=== PATIENT | male | born 1955 | race Caucasian/White ===

== ENCOUNTER 2020-11-08 11:06 | Inpatient (IN) | payer MEDICAID, OTHER ==
[2020-11-08] MEDS ORDERED: Sodium Chloride 0.9% 10 ML Syringe FLUSH PRN (11:17)
[2020-11-08] MEDS ORDERED: Acetaminophen 325 MG Tab PO PRN (11:17)
[2020-11-08] MEDS ORDERED: Ondansetron 4 MG/2 ML SDV IV PRN (11:17)
--- NOTE | 2020-11-08 12:02 | PCM.HP.2 ---
<Yo Marks - Last Filed: 11/08/20 14:27> H&P History of Present Illness - General Date of Service: 11/08/20 Admit Problem/Dx: Admission Diagnosis/Problem Admission Diagnosis/Problem Bacteremia Source of Information: Patient, Provider, RN, RN Notes Reviewed History Limitations: Reports: No Limitations - History of Present Illness Initial Comments - Free Text/Narative: This is a 65-year-old male who presents as a direct admit after being sent our way from oncology. Patient reportedly was evaluated at [facility] on 11/07/2020 after he reported a fever, sore throat, and runny nose. He also reported an associated cough. Patient reports he has been feeling progressively worse and that is been ongoing for several days. He was given a fluid bolus at [facility] due to blood pressure of 86/48 and labs were obtained. Per the [facility] note WBC was 4.8, ANC was 4.0, hemoglobin 10.8, platelets 158, toxic granulation was noted. Glucose was 145, BUN was 29, creatinine 1.27, calcium 8.3, protein 5.5, albumin 2.8, GFR was 57. Last chest x-ray was performed on the and was negative except for the mass in his right lung. Covid screen was negative. UA was also obtained with 1+ blood, 30 mg/dL of protein, 1+ leukocyte esterase, 21-50 WBCs, 6-10 RBCs, occasional squamous epithelial cell, and moderate bacteria noted. Per the [facility] note this was sent for culture and we will monitor for the results of this. At that time blood cultures were obtained and were sent to our facility. 4 out of 4 bottles returned positive for beta strep group B. After this was observed he was sent to our facility for admission. He carries a history of COPD, CAD, HLD, hypertension, malignant neoplasm of the lower left lobe of the right lung. He is currently undergoing treatment with Dr. Fisher, of [facility]. He does have a Port-A-Cath in place, right chest. He is a current daily smoker with a history of 2 packs a day, but reports he is down to about a pack every 4 days. He is a full code. His PCP is Tammi Hernandez NP. right flank Pain Score (Numeric/FACES): 2 - Related Data Allergies/Adverse Reactions: Allergies Allergy/AdvReac Type Severity Reaction Status Date / Time ampicillin Allergy Other Verified 10/12/20 07:38 H&P Review of Systems - Review of Systems: Review Of Systems: See Below General: Reports: Fever, Chills, Malaise, Weakness, Fatigue HEENT: Reports: Post Nasal Drip, Sinus Congestion, Sore Throat. Denies: Headac hes Pulmonary: Reports: Shortness of Breath, Cough, Sputum. Denies: Wheezing, Pleuritic Chest Pain Cardiovascular: Reports: Dyspnea on Exertion, Orthopnea, Edema. Denies: Chest Pain, Palpitations Gastrointestinal: Denies: Abdominal Pain, Constipation, Diarrhea, Nausea, Vomiting Genitourinary: Reports: Frequency, Urgency, Incontinence (occasional ), Other (Right scrotal swelling without pain ). Denies: Pain Musculoskeletal: Reports: No Symptoms Skin: Reports: No Symptoms. Denies: Cyanosis Psychiatric: Reports: No Symptoms. Denies: Confusion Neurological: Reports: No Symptoms. Denies: Numbness, Pre-Existing Deficit, Tingling, Difficulty Walking, Change in Speech, Gait Disturbance Hematologic/Lymphatic: Reports: No Symptoms. Denies: Anemia Immunologic: Reports: No Symptoms Exam - Exam Exam: See Below - Vital Signs Weight: 71.35 kg - Exam Quality Assessment: Supplemental Oxygen, DVT Prophylaxis. No: Urinary Catheter, Skin Breakdown General: Alert, Oriented, Cooperative. No: Mild Distress HEENT: Conjunctiva Clear, EACs Clear, Hearing Intact, Mucosa Moist & [place], Posterior Pharynx Clear, Other (Very small wound in right nare - likely 2/2 irritation from oxygen tubing ) Neck: Supple, Trachea Midline Lungs: Normal Respiratory Effort, Decreased Breath Sounds, Other (Port in right chest). No: Crackles, Rhonchi, Wheezing Cardiovascular: Regular Rate, Regular Rhythm GI/Abdominal Exam: Normal Bowel Sounds, Soft, Non-Tender, No Distention (Male) Exam: Scrotal Swelling (right sided - reports this has been ongoing for quite some time and PCP has been working him up for this ). No: Rash, Scrotum Tenderness (L), Scrotum Tenderness (R), Testicular Mass, Testicular Tenderness (L), Testicular Tenderness (R) Rectal (Males) Exam: Deferred Back Exam: Normal Inspection, Full Range of Motion Extremities: Normal Inspection, Normal Range of Motion, Non-Tender, Normal Capillary Refill, Pedal Edema (trace ) Skin: Warm, Dry, Intact Neurological: Cranial Nerves Intact (Grossly ) Neuro Extensive - Mental Status: Alert, Oriented x3, Normal Mood/Affect - Patient Data Result Diagrams: 11/08/20 12:20 11/08/20 12:20 - Problem List (1) Bacteremia SNOMED Code(s): 4266545 ICD Code: R78.81 - BACTEREMIA Status: Acute Priority: High Current Visit: Yes (2) COPD (chronic obstructive pulmonary disease) SNOMED Code(s): 83866601 ICD Code: J44.9 - CHRONIC OBSTRUCTIVE PULMONARY DISEASE, UNSPECIFIED Status: Chronic Priority: Low Current Visit: No Qualifiers: COPD type: unspecified COPD Qualified Code(s): J44.9 - Chronic obstructive pulmonary disease, unspecified (3) CAD (coronary artery disease) SNOMED Code(s): 87337154 ICD Code: I25.10 - ATHSCL HEART DISEASE OF [place] CORONARY ARTERY W/O ANG PCTRS Status: Chronic Priority: Low Current Visit: No Qualifiers: Coronary Disease-Associated Artery/Lesion type: unspecified vessel or lesion type [place] vs. transplanted heart: [place] heart Associated angina: angina presence unspecified Qualified Code(s): I25.10 - Atherosclerotic heart disease of [place] coronary artery without angina pectoris (4) HLD (hyperlipidemia) SNOMED Code(s): 48871836 ICD Code: E78.5 - HYPERLIPIDEMIA, UNSPECIFIED Status: Chronic Priority: Low Current Visit: No Qualifiers: Hyperlipidemia type: unspecified Qualified Code(s): E78.5 - Hyperlipidemia, unspecified (5) HTN (hypertension) SNOMED Code(s): 22724266 ICD Code: I10 - ESSENTIAL (PRIMARY) HYPERTENSION Status: Chronic Priority: Medium Current Visit: No Qualifiers: Hypertension type: unspecified Qualified Code(s): I10 - Essential (primary) hypertension (6) Malignant neoplasm of lower lobe of right lung SNOMED Code(s): 279899948 ICD Code: C34.31 - MALIGNANT NEOPLASM OF LOWER LOBE, RIGHT BRONCHUS OR LUNG Status: Chronic Priority: Medium Current Visit: Yes (7) Port-A-Cath in place SNOMED Code(s): 241354529 ICD Code: Z95.828 - PRESENCE OF OTHER VASCULAR IMPLANTS AND GRAFTS Status: Chronic Priority: Medium Current Visit: Yes (8) Swelling of right half of scrotum SNOMED Code(s): 047780312 ICD Code: N50.89 - OTHER SPECIFIED DISORDERS OF THE MALE GENITAL ORGANS Status: Chronic Priority: Medium Current Visit: Yes (9) Throat pain in adult SNOMED Code(s): 817675444 ICD Code: R07.0 - PAIN IN THROAT Status: Acute Priority: High Current Visit: Yes (10) Current smoker SNOMED Code(s): 95741364 ICD Code: F17.200 - NICOTINE DEPENDENCE, UNSPECIFIED, UNCOMPLICATED Status: Acute Priority: High Current Visit: Yes Problem List Initiated/Reviewed/Updated: Yes Orders Last 24hrs: Active Orders 24 hr Category Date Time Status Patient Status [ADT] Routine ADT 11/08/20 11:17 Active Cardiac Monitoring [RC] CONTINUOUS Care 11/08/20 11:18 Active Height and Weight [RC] DAILY Care 11/08/20 11:17 Active Intake and Output [RC] QSHIFT Care 11/08/20 11:18 Active Oxygen Therapy [RC] PRN Care 11/08/20 11:17 Active Peripheral IV Care [RC] . DIRECTED Care 11/08/20 11:19 Active Pulse Oximetry [RC] PRN Care 11/08/20 11:18 Active Up ad Dina [RC] ASDIRECTED Care 11/08/20 11:17 Active VTE/DVT Education [RC] PER UNIT ROUTINE Care 11/08/20 11:17 Active Vital Signs [RC] Q4H Care 11/08/20 11:17 Active Regular Diet [DIET] Diet 11/08/20 Lunch Active CBC WITH AUTO DIFF [HEME] Routine Lab 11/08/20 11:25 Received CMP [COMPREHENSIVE METABOLIC PN,CMP] [CHEM] Routine Lab 11/08/20 11:20 Ordered CRP [C-REACTIVE PROTEIN] [CHEM] Routine Lab 11/08/20 11:20 Ordered MAGNESIUM [CHEM] Routine Lab 11/08/20 11:20 Ordered Acetaminophen [TylenoL] Med 11/08/20 11:17 Active 650 mg PO Q4H PRN Enoxaparin [Lovenox] Med 11/08/20 11:30 Pending 40 mg SUBCUT Q24H Ondansetron [Zofran] Med 11/08/20 11:17 Active 4 mg IV Q6H PRN Sodium Chloride 0.9% [Saline Flush] Med 11/08/20 11:17 Active 10 ml FLUSH ASDIRECTED PRN cefTRIAXone [Rocephin] 2 gm Med 11/08/20 12:00 Active Sodium Chloride 0.9% [Normal Saline] 100 ml IV Q24H Peripheral IV Insertion Adult [OM.PC] Routine Oth 11/08/20 11:17 Ordered Medication Orders Acetaminophen (Tylenol) 650 mg PO Q4H PRN PRN Reason: Pain (Mild 1-3)/fever Enoxaparin Sodium (Lovenox) 40 mg SUBCUT Q24H [place] Ceftriaxone Sodium 2 gm/ (Sodium Chloride) 100 mls @ 200 mls/hr IV Q24H [place] Ondansetron HCl (Zofran) 4 mg IV Q6H PRN PRN Reason: Nausea/Vomiting Sodium Chloride (Saline Flush) 10 ml FLUSH ASDIRECTED PRN PRN Reason: Keep Vein Open Assessment/Plan Comment:: Assessment - Day of admission - 11/08/2020 * 65 yo male sent for direct admit from oncology after 02/11 bottles positive for beta group B strep * History of right lower lobe lung cancer currently undergoing chemotherapy with Dr. Fisher, Oncology from [facility] * Repots ongoing symptoms of fever, malaise, weakness, cough with sputum, and urinary symptoms of increased frequency and incontinence. * Reports throat pain * Given prescription for PO levaquin by oncology and 1L bolus in clinic with infusion due to hypotension * UA obtained at [facility]: Cloudy, 1+ blood, 30mg/dL protein, 1+ Leukocyte esterase, 21-50 WBC, 6-10 RBC, Occasional Squamous epithelial cells, Moderate bacteria * Sent for culture through [facility] * Negative SARS-CoV antigen * Labs on 11/07/20 at [facility] * WBC 4.8 * ANC 4.0 * Hgb 10.8 * Platelets 158 * Toxic granulation noted * Glucose 145 * BUN 29 * Creatinine 1.27 * Calcium 8.3 * Protein 5.5 * Albumin 2.8 * GFR 57 * CXR on 10/30/20 at [facility] was negative except for mas in right mid lung * Wears oxygen 1-3L chronically * [facility] provider note expresses concerns over how patient will do at home. Worried he may need more support at home. * Sepsis screen: * Known bacteremia, and tachycardia but no fever, tachypnea, or WBC <4 or >12. * Does not meet criteria * Direct admit to floor for treatment and further workup of bacteremia. PLAN Bacteremia Throat pain in adult * Access port as below * Start 2gm daily Rocephin * Monitor blood cultures for susceptibility * Throat swab/culture * Repeat Blood cultures in 48 hours * Obtain echocardiogram looking for vegetation (patient also has signs suspicious for CHF) * Obtain CXR now * Obtain CBC, CMP, Magnesium, Procalcitonin, Pro-BNP, CRP * Monitor need for IV fluids * Monitor need for oxygen - On 1-3L chronically * PT/OT evaluatoin * CM/SW for discharge planning * Special attention due to patients immunocompromised state due to lung cancer as below COPD (chronic obstructive pulmonary disease) CAD (coronary artery disease) HLD (hyperlipidemia) HTN (hypertension) * Home medications as noted * Monitor Malignant neoplasm of lower lobe of right lung Port-A-Cath in place * Access port * Patient to follow-up with oncology Swelling of right half of scrotum * Obtain PCP notes * Patient reports undergoing recent scrotal US * Follow-up with PCP after discharge, may need urology f/u Current smoker * Cessation counseling * Nicotine patches while in hospital * Nicotine patches at discharge if patient accepts Code status: Full Code PCP: Tammi Hernandez NP Oncologist: Dr. Fisher DVT Prophylaxis: Lovenox Social: Patient lives alone in [place] but has a sister who [place] in a [place] house. Disposition: Admitted to [facility] inpatient with telemetry for management and further workup of beta group B strep bacteremia. Prognosis: Good - Mortality Measure Prognosis:: Good <Geovanni Viveros - Last Filed: 11/08/20 15:55> H&P History of Present Illness - General Admit Problem/Dx: Admission Diagnosis/Problem Admission Diagnosis/Problem Bacteremia Exam - Vital Signs Vital Signs: Last Vital Signs Temp 36.9 C 11/08/20 15:21 Pulse 113 H 11/08/20 15:21 Resp 28 H 11/08/20 15:21 BP 156/87 H 11/08/20 15:21 Pulse Ox 90 L 11/08/20 15:21 - Patient Data Lab Results Last 24 hrs: Laboratory Results - last 24 hr 11/08/20 11/08/20 11/08/20 Range/Units 12:20 12:20 12:20 WBC 5.94 (4.23-9.07) K/mm3 RBC 3.59 L (4.63-6.08) M/mm3 Hgb 10.0 L (13.7-17.5) gm/dl Hct 32.1 L (40.1-51.0) % MCV 89.4 (79.0-92.2) fl MCH 27.9 (25.7-32.2) pg MCHC 31.2 L (32.2-35.5) g/dl RDW Std Deviation 46.9 H (35.1-43.9) fL Plt Count 187 (163-337) K/mm3 MPV 9.9 (9.4-12.3) fl Neut % (Auto) 72.4 H (34.0-67.9) % Lymph % (Auto) 13.5 L (21.8-53.1) % [place] % (Auto) 13.3 H (5.3-12.2) % Eos % (Auto) 0 L (0.8-7.0) Baso % (Auto) 0.3 (0.1-1.2) % Neut # (Auto) 4.30 (1.78-5.38) K/mm3 Lymph # (Auto) 0.80 L (1.32-3.57) K/mm3 [place] # (Auto) 0.79 (0.30-0.82) K/mm3 Eos # (Auto) 0.00 L (0.04-0.54) K/mm3 Baso # (Auto) 0.02 (0.01-0.08) K/mm3 Manual Slide Review Normal smear Sodium 137 (136-145) mEq/L Potassium 3.7 (3.5-5.1) mEq/L Chloride 101 (98-107) mEq/L Carbon Dioxide 30 (21-32) mEq/L Anion Gap 9.7 (5-15) BUN 23 H (7-18) mg/dL Creatinine 1.2 (0.7-1.3) mg/dL Est Cr Clr Drug Dosing 52.07 mL/min Estimated GFR (MDRD) > 60 (>60) mL/min BUN/Creatinine Ratio 19.2 H (14-18) Glucose 129 H (80-115) mg/dL Lactic Acid 0.7 (0.4-2.0) mmol/L Calcium 8.5 (8.5-10.1) mg/dL Magnesium 1.6 L (1.8-2.4) mg/dl Total Bilirubin 0.5 (0.2-1.0) mg/dL AST 24 (15-37) U/L ALT 31 (16-63) U/L Alkaline Phosphatase 71 (46-116) U/L C-Reactive Protein 20.2 H* (<1.0) mg/dL NT-Pro-B Natriuret Pep (0-125) pg/mL Total Protein 5.8 L (6.4-8.2) g/dl Albumin 1.9 L (3.4-5.0) g/dl Globulin 3.9 gm/dL Albumin/Globulin Ratio 0.5 L (1-2) 12/30/20 Range/Units 12:20 WBC (4.23-9.07) K/mm3 RBC (4.63-6.08) M/mm3 Hgb (13.7-17.5) gm/dl Hct (40.1-51.0) % MCV (79.0-92.2) fl MCH (25.7-32.2) pg MCHC (32.2-35.5) g/dl RDW Std Deviation (35.1-43.9) fL Plt Count (163-337) K/mm3 MPV (9.4-12.3) fl Neut % (Auto) (34.0-67.9) % Lymph % (Auto) (21.8-53.1) % [place] % (Auto) (5.3-12.2) % Eos % (Auto) (0.8-7.0) Baso % (Auto) (0.1-1.2) % Neut # (Auto) (1.78-5.38) K/mm3 Lymph # (Auto) (1.32-3.57) K/mm3 [place] # (Auto) (0.30-0.82) K/mm3 Eos # (Auto) (0.04-0.54) K/mm3 Baso # (Auto) (0.01-0.08) K/mm3 Manual Slide Review Sodium (136-145) mEq/L Potassium (3.5-5.1) mEq/L Chloride (98-107) mEq/L Carbon Dioxide (21-32) mEq/L Anion Gap (5-15) BUN (7-18) mg/dL Creatinine (0.7-1.3) mg/dL Est Cr Clr Drug Dosing mL/min Estimated GFR (MDRD) (>60) mL/min BUN/Creatinine Ratio (14-18) Glucose (80-115) mg/dL Lactic Acid (0.4-2.0) mmol/L Calcium (8.5-10.1) mg/dL Magnesium (1.8-2.4) mg/dl Total Bilirubin (0.2-1.0) mg/dL AST (15-37) U/L ALT (16-63) U/L Alkaline Phosphatase (46-116) U/L C-Reactive Protein (<1.0) mg/dL NT-Pro-B Natriuret Pep 1950 H (0-125) pg/mL Total Protein (6.4-8.2) g/dl Albumin (3.4-5.0) g/dl Globulin gm/dL Albumin/Globulin Ratio (1-2) Result Diagrams: 11/08/20 12:20 11/08/20 12:20 Sepsis Event Note - Focused Exam Vital Signs: Vital Signs Temp Pulse Resp BP Pulse Ox 11/08/20 15:21 36.9 C 113 H 28 H 156/87 H 90 L 11/08/20 11:32 108 H 95 11/08/20 11:22 36.5 C 110 H 20 120/66 85 L Orders Last 24hrs: Active Orders 24 hr Category Date Time Status Patient Status [ADT] Routine ADT 11/08/20 11:17 Active Height and Weight [RC] 06 Care 11/08/20 11:17 Active Intake and Output [RC] 04,16 Care 11/08/20 11:18 Active Oxygen Therapy [RC] Care 11/08/20 11:17 Active RT Aerosol Therapy [RC] ASDIRECTED Care 11/08/20 14:45 Active Up ad Dina [RC] Care 11/08/20 11:17 Active VTE/DVT Education [RC] 1800 Care 11/08/20 11:17 Active Vital Signs [RC] Q4HR Care 11/08/20 11:17 Active Consult to Case Management/Inspector Brake Lining [CONS] Cons 11/08/20 15:08 Active Routine Consult to Rn Acute Care [CONS] Routine Cons 11/08/20 13:35 Active Consult to Occupational Therapy [OT Evaluation and Cons 11/08/20 12:53 Active Treatment] [CONS] Routine PT Evaluation and Treatment [CONS] Routine Cons 11/08/20 12:53 Active Regular Diet [DIET] Diet 11/08/20 Lunch Active BASIC METABOLIC PANEL,BMP [CHEM] AM Lab 11/09/20 05:11 Ordered C-REACTIVE PROTEIN [CHEM] AM Lab 11/09/20 05:11 Ordered CBC WITH AUTO DIFF [HEME] AM Lab 11/09/20 05:11 Ordered CULTURE THROAT [RM] Routine Lab 11/08/20 15:20 Received MAGNESIUM [CHEM] AM Lab 11/09/20 05:11 Ordered PROCALCITONIN [REF] Routine Lab 11/08/20 12:20 Received URINALYSIS W/MICROSCOPIC [UA W/MICROSCOPIC] [URIN] Lab 11/08/20 13:21 Ordered Routine Acetaminophen [TylenoL] Med 11/08/20 11:17 Active 650 mg PO Q4H PRN Albuterol/Ipratropium [DuoNeb 3.0-0.5 MG/3 ML] Med 11/08/20 14:45 Active 3 ml NEB Q6HRRT PRN Aspirin Med 11/09/20 09:00 Active 81 mg PO DAILY Enoxaparin [Lovenox] Med 11/09/20 09:00 Active 40 mg SUBCUT DAILY Magnesium Sulfate/Water [Magnesium Sulfate in Water Med 11/08/20 14:00 Active Premix] 2 gm in 50 ml IV ONETIME Nicotine [Habitrol] Med 11/08/20 14:00 Active 14 mg TRDERM Q24H Ondansetron [Zofran] Med 11/08/20 11:17 Active 4 mg IV Q6H PRN Remove Patch Med 11/09/20 14:00 Active 0 ea TRDERM Q24H Simvastatin [Zocor] Med 11/09/20 09:00 Active 20 mg PO DAILY Sodium Chloride 0.9% [Saline Flush] Med 11/08/20 11:17 Active 10 ml FLUSH ASDIRECTED PRN Tiotropium BR/Olodaterol HCL [Stiolto Respimat] Med 11/09/20 09:00 Active 0 gm INH DAILY cefTRIAXone [Rocephin] 2 gm Med 11/08/20 12:00 Active Sodium Chloride 0.9% [Normal Saline] 100 ml IV Q24H Peripheral IV Insertion Adult [OM.PC] Routine Oth 11/08/20 11:17 Ordered Code Status [Resuscitation Status] Routine Resus Stat 11/08/20 12:52 Ordered Medication Orders Acetaminophen (Tylenol) 650 mg PO Q4H PRN PRN Reason: Pain (Mild 1-3)/fever Albuterol/Ipratropium (Duoneb 3.0-0.5 Mg/3 Ml) 3 ml NEB Q6HRRT PRN PRN Reason: wheezing/SOB/cough Aspirin (Aspirin) 81 mg PO DAILY [place] Enoxaparin Sodium (Lovenox) 40 mg SUBCUT DAILY [facility] Ceftriaxone Sodium 2 gm/ (Sodium Chloride) 100 mls @ 200 mls/hr IV Q24H [facility] Last Admin: 11/08/20 12:25 Dose: 200 mls/hr Documented by: [id number] Magnesium Sulfate (Magnesium Sulfate In Water Premix) 2 gm in 50 mls @ 25 mls/hr IV ONETIME ONE Stop: 11/08/20 15:59 Last Admin: 11/08/20 15:13 Dose: 25 mls/hr Documented by: [id number] Miscellaneous Information (Remove Patch) 0 ea TRDERM Q24H [facility] Nicotine (Habitrol) 14 mg TRDERM Q24H [facility] Last Admin: 11/08/20 15:23 Dose: 14 mg Documented by: [id number] Ondansetron HCl (Zofran) 4 mg IV Q6H PRN PRN Reason: Nausea/Vomiting Simvastatin (Zocor) 20 mg PO DAILY [facility] Sodium Chloride (Saline Flush) 10 ml FLUSH ASDIRECTED PRN PRN Reason: Keep Vein Open Assessment/Plan Comment:: I have seen and evaluated the patient independently of Yo Marks PA-C. I have reviewed and agree with the plan of care as outlined by him for this patient. Please see orders.
[2020-11-08] MEDS ORDERED: Nicotine 21 MG/24 Hr Patch TRDERM SCH (12:15)
[2020-11-08] MEDS: cefTRIAXone 2 GM in Sodium Chloride 0.9% 100 ML IV SCH (12:25)
[2020-11-08] MEDS ORDERED: Magnesium Sulfate/Water 2 GM/50 ML BAG IV ONE (14:00)
[2020-11-08] MEDS ORDERED: Enoxaparin 40 MG/0.4 ML Syringe SUBCUT SCH ×2 (14:00→21:00)
--- NOTE | 2020-11-08 14:07 | CR ---
Chest: 2 views of the chest were obtained. Comparison: No prior chest imaging. Heart size is normal. Tortuous thoracic aorta is seen. Right-sided infusion catheter is seen. Nodule is noted with left upper chest which is most likely a granuloma. There is thickening of the major fissure noted on the right side. Diffuse interstitial change is seen throughout both lungs. Findings within the right clavicle likely represent old healed fracture. Several left upper rib fractures are noted which appear old. Slight pleural thickening along the right lateral chest which is likely chronic. Impression: 1. Multiple findings as noted above. Nothing acute is definitely appreciated. 2. Old studies would be very helpful to confirm stability. Diagnostic code #3
[2020-11-08] MEDS ORDERED: Albuterol/Ipratropium 3.0-0.5 MG/3 ML Neb Soln NEB PRN (14:45)
[2020-11-08] MEDS: Nicotine 14 MG/24 Hr Patch TRDERM SCH (15:23)
[2020-11-08] MEDS ORDERED: Diltiazem 50 MG/10 ML SDV IVPUSH ONE (17:07)
--- NOTE | 2020-11-08 17:45 | PCM.SN.2 ---
- Free Text/Narrative Note: The patient is a 65-year-old gentleman who was admitted today as a direct admission from oncology office. The patient had telemetry in place and was noted to be in atrial fibrillation with RVR with a rate between 175 and 195 bpm. EKG was obtained and this showed a ventricular rate of 175 bpm with atrial fibrillation. Physical examination of the patient had revealed that his heart was indeed in atrial fibrillation with RVR however, most of these beats were nonperfusing. His actual pulse rate was around 60-70. Because the patient was actually in atrial fibrillation with nonperfusing beats Cardizem was ordered with pharmacy to dose by weightbase. This was a single one-time IV push dose. The patient himself did not even know and was otherwise comfortable. Interestingly, the patient's temperature was taken in my presence and he had a fever of 102.4 F. Previously ordered Tylenol was given.
[2020-11-08] MEDS ORDERED: Diltiazem 100 MG in Sodium Chloride 0.9% 100 ML IV SCH (18:45)
[2020-11-09] MEDS: Tiotropium BR/Olodaterol HCL 4 GM Inhalation Spray 2.5mcg/1 dose; 10 doses INH SCH (08:02)
[2020-11-09] MEDS: Aspirin 81 MG Tab.Chew PO SCH (08:28)
[2020-11-09] MEDS: Enoxaparin 40 MG/0.4 ML Syringe SUBCUT SCH (08:28)
[2020-11-09] MEDS: Simvastatin 20 MG Tab PO SCH (08:28)
[2020-11-09] MEDS ORDERED: OLANZAPINE 10 MG PO SCH (09:00)
[2020-11-09] MEDS ORDERED: Dexamethasone 4 MG Tab PO SCH (09:00)
--- NOTE | 2020-11-09 09:31 | PCM.PN ---
<Yo Marks - Last Filed: 11/09/20 14:53> - General Info Date of Service: 11/09/20 Admission Dx/Problem (Free Text): Admission Diagnosis/Problem Admission Diagnosis/Problem Bacteremia Functional Status: Reports: Pain Controlled, Tolerating Diet, Ambulating, Urinating. Denies: New Symptoms - Review of Systems General: Reports: No Symptoms, Weakness, Fatigue. Denies: Fever, Malaise, Chills HEENT: Reports: Sinus Congestion, Sore Throat. Denies: Headaches Pulmonary: Reports: Cough. Denies: Shortness of Breath, Sputum, Wheezing Cardiovascular: Reports: No Symptoms, Dyspnea on Exertion. Denies: Chest Pain, Palpitations, Edema Gastrointestinal: Reports: Abdominal Pain (RUQ). Denies: Constipation, Diarrhea, Nausea, Vomiting Genitourinary: Reports: Urgency, Incontinence. Denies: Pain Musculoskeletal: Reports: Back Pain Skin: Reports: No Symptoms. Denies: Cyanosis Neurological: Reports: No Symptoms. Denies: Confusion, Pre-Existing Deficit, Difficulty Walking, Gait Disturbance Psychiatric: Reports: No Symptoms - Patient Data Vitals - Most Recent: Last Vital Signs Temp 97 F 11/09/20 09:00 Pulse 174 H 11/08/20 17:21 Resp 20 11/09/20 09:21 BP 80/62 L 11/09/20 08:30 Pulse Ox 94 L 11/09/20 08:45 Weight - Most Recent: 70.307 kg I&O - Last 24 Hours: Intake & Output 11/08/20 11/09/20 11/09/20 22:59 06:59 14:59 Intake Total 690 538 Output Total 400 800 Balance 290 -262 Lab Results Last 24 Hours: Laboratory Results - last 24 hr 11/08/20 11/08/20 11/08/20 Range/Units 12:20 12: 12:20 WBC 5.94 (4.23-9.07) K/mm3 RBC 3.59 L (4.63-6.08) M/mm3 Hgb 10.0 L (13.7-17.5) gm/dl Hct 32.1 L (40.1-51.0) % MCV 89.4 (79.0-92.2) fl MCH 27.9 (25.7-32.2) pg MCHC 31.2 L (32.2-35.5) g/dl RDW Std Deviation 46.9 H (35.1-43.9) fL Plt Count 187 (163-337) K/mm3 MPV 9.9 (9.4-12.3) fl Neut % (Auto) 72.4 H (34.0-67.9) % Lymph % (Auto) 13.5 L (21.8-53.1) % [place] % (Auto) 13.3 H (5.3-12.2) % Eos % (Auto) 0 L (0.8-7.0) Baso % (Auto) 0.3 (0.1-1.2) % Neut # (Auto) 4.30 (1.78-5.38) K/mm3 Lymph # (Auto) 0.80 L (1.32-3.57) K/mm3 [place] # (Auto) 0.79 (0.30-0.82) K/mm3 Eos # (Auto) 0.00 L (0.04-0.54) K/mm3 Baso # (Auto) 0.02 (0.01-0.08) K/mm3 Manual Slide Review Normal smear Sodium 137 (136-145) mEq/L Potassium 3.7 (3.5-5.1) mEq/L Chloride 101 (98-107) mEq/L Carbon Dioxide 30 (21-32) mEq/L Anion Gap 9.7 (5-15) BUN 23 H (7-18) mg/dL Creatinine 1.2 (0.7-1.3) mg/dL Est Cr Clr Drug Dosing 52.07 mL/min Estimated GFR (MDRD) > 60 (>60) mL/min BUN/Creatinine Ratio 19.2 H (14-18) Glucose 129 H (80-115) mg/dL Lactic Acid 0.7 (0.4-2.0) mmol/L Calcium 8.5 (8.5-10.1) mg/dL Magnesium 1.6 L (1.8-2.4) mg/dl Total Bilirubin 0.5 (0.2-1.0) mg/dL AST 24 (15-37) U/L ALT 31 (16-63) U/L Alkaline Phosphatase 71 (46-116) U/L C-Reactive Protein 20.2 H* (<1.0) mg/dL NT-Pro-B Natriuret Pep (0-125) pg/mL Total Protein 5.8 L (6.4-8.2) g/dl Albumin 1.9 L (3.4-5.0) g/dl Globulin 3.9 gm/dL Albumin/Globulin Ratio 0.5 L (1-2) Urine Color (Yellow) Urine Appearance (Clear) Urine pH (5.0-8.0) Ur Specific [place] (1.005-1.030) Urine Protein (Negative) Urine Glucose (UA) (Negative) Urine Ketones (Negative) Urine Occult Blood (Negative) Urine Nitrite (Negative) Urine Bilirubin (Negative) Urine Urobilinogen (0.2-1.0) Ur Leukocyte Esterase (Negative) Urine RBC (0-5) /hpf Urine WBC (0-5) /hpf Ur Squamous Epith Cells (0-5) /hpf Urine Bacteria (FEW) /hpf Urine Mucus (FEW) /hpf 11/08/20 11/08/20 11/09/20 Range/Units 12:20 16:45 06:10 WBC 6.79 (4.23-9.07) K/mm3 RBC 3.57 L (4.63-6.08) M/mm3 Hgb 9.9 L (13.7-17.5) gm/dl Hct 32.5 L (40.1-51.0) % MCV 91.0 (79.0-92.2) fl MCH 27.7 (25.7-32.2) pg MCHC 30.5 L (32.2-35.5) g/dl RDW Std Deviation 47.4 H (35.1-43.9) fL Plt Count 209 (163-337) K/mm3 MPV 9.9 (9.4-12.3) fl Neut % (Auto) 68.7 H (34.0-67.9) % Lymph % (Auto) 19.6 L (21.8-53.1) % [place] % (Auto) 10.6 (5.3-12.2) % Eos % (Auto) 0.4 L (0.8-7.0) Baso % (Auto) 0.1 (0.1-1.2) % Neut # (Auto) 4.66 (1.78-5.38) K/mm3 Lymph # (Auto) 1.33 (1.32-3.57) K/mm3 [place] # (Auto) 0.72 (0.30-0.82) K/mm3 Eos # (Auto) 0.03 L (0.04-0.54) K/mm3 Baso # (Auto) 0.01 (0.01-0.08) K/mm3 Manual Slide Review Normal smear Sodium (136-145) mEq/L Potassium (3.5-5.1) mEq/L Chloride (98-107) mEq/L Carbon Dioxide (21-32) mEq/L Anion Gap (5-15) BUN (7-18) mg/dL Creatinine (0.7-1.3) mg/dL Est Cr Clr Drug Dosing mL/min Estimated GFR (MDRD) (>60) mL/min BUN/Creatinine Ratio (14-18) Glucose (80-115) mg/dL Lactic Acid (0.4-2.0) mmol/L Calcium (8.5-10.1) mg/dL Magnesium (1.8-2.4) mg/dl Total Bilirubin (0.2-1.0) mg/dL AST (15-37) U/L ALT (16-63) U/L Alkaline Phosphatase (46-116) U/L C-Reactive Protein (<1.0) mg/dL NT-Pro-B Natriuret Pep 1950 H (0-125) pg/mL Total Protein (6.4-8.2) g/dl Albumin (3.4-5.0) g/dl Globulin gm/dL Albumin/Globulin Ratio (1-2) Urine Color Dark yellow (Yellow) Urine Appearance Slt cloudy H (Clear) Urine pH 6.0 (5.0-8.0) Ur Specific [place] 1.020 (1.005-1.030) Urine Protein 2+ H (Negative) Urine Glucose (UA) Negative (Negative) Urine Ketones Negative (Negative) Urine Occult Blood 1+ H (Negative) Urine Nitrite Negative (Negative) Urine Bilirubin Negative (Negative) Urine Urobilinogen 1.0 (0.2-1.0) Ur Leukocyte Esterase 1+ H (Negative) Urine RBC 10-20 H (0-5) /hpf Urine WBC 40-50 H (0-5) /hpf Ur Squamous Epith Cells 10-20 H (0-5) /hpf Urine Bacteria Moderate H (FEW) /hpf Urine Mucus Not seen (FEW) /hpf 11/09/20 Range/Units 06:10 WBC (4.23-9.07) K/mm3 RBC (4.63-6.08) M/mm3 Hgb (13.7-17.5) gm/dl Hct (40.1-51.0) % MCV (79.0-92.2) fl MCH (25.7-32.2) pg MCHC (32.2-35.5) g/dl RDW Std Deviation (35.1-43.9) fL Plt Count (163-337) K/mm3 MPV (9.4-12.3) fl Neut % (Auto) (34.0-67.9) % Lymph % (Auto) (21.8-53.1) % [place] % (Auto) (5.3-12.2) % Eos % (Auto) (0.8-7.0) Baso % (Auto) (0.1-1.2) % Neut # (Auto) (1.78-5.38) K/mm3 Lymph # (Auto) (1.32-3.57) K/mm3 [place] # (Auto) (0.30-0.82) K/mm3 Eos # (Auto) (0.04-0.54) K/mm3 Baso # (Auto) (0.01-0.08) K/mm3 Manual Slide Review Sodium 139 (136-145) mEq/L Potassium 3.6 (3.5-5.1) mEq/L Chloride 102 (98-107) mEq/L Carbon Dioxide 30 (21-32) mEq/L Anion Gap 10.6 (5-15) BUN 21 H (7-18) mg/dL Creatinine 1.3 (0.7-1.3) mg/dL Est Cr Clr Drug Dosing 48.07 mL/min Estimated GFR (MDRD) 56 (>60) mL/min BUN/Creatinine Ratio 16.2 (14-18) Glucose 115 (80-115) mg/dL Lactic Acid (0.4-2.0) mmol/L Calcium 8.3 L (8.5-10.1) mg/dL Magnesium 1.9 (1.8-2.4) mg/dl Total Bilirubin (0.2-1.0) mg/dL AST (15-37) U/L ALT (16-63) U/L Alkaline Phosphatase (46-116) U/L C-Reactive Protein 18.5 H* (<1.0) mg/dL NT-Pro-B Natriuret Pep (0-125) pg/mL Total Protein (6.4-8.2) g/dl Albumin (3.4-5.0) g/dl Globulin gm/dL Albumin/Globulin Ratio (1-2) Urine Color (Yellow) Urine Appearance (Clear) Urine pH (5.0-8.0) Ur Specific [place] (1.005-1.030) Urine Protein (Negative) Urine Glucose (UA) (Negative) Urine Ketones (Negative) Urine Occult Blood (Negative) Urine Nitrite (Negative) Urine Bilirubin (Negative) Urine Urobilinogen (0.2-1.0) Ur Leukocyte Esterase (Negative) Urine RBC (0-5) /hpf Urine WBC (0-5) /hpf Ur Squamous Epith Cells (0-5) /hpf Urine Bacteria (FEW) /hpf Urine Mucus (FEW) /hpf Med Orders - Current: Current Medications Acetaminophen (Tylenol) 650 mg PO Q4H PRN PRN Reason: Pain (Mild 1-3)/fever Last Admin: 11/08/20 17:17 Dose: 650 mg Documented by: Albuterol/Ipratropium (Duoneb 3.0-0.5 Mg/3 Ml) 3 ml NEB Q6HRRT PRN PRN Reason: wheezing/SOB/cough Aspirin (Aspirin) 81 mg PO DAILY [facility] Last Admin: 11/09/20 08:28 Dose: 81 mg Documented by: Enoxaparin Sodium (Lovenox) 40 mg SUBCUT DAILY [facility] Last Admin: 11/09/20 08:28 Dose: 40 mg Documented by: Ceftriaxone Sodium 2 gm/ (Sodium Chloride) 100 mls @ 200 mls/hr IV Q24H [facility] Last Admin: 11/08/20 12:25 Dose: 200 mls/hr Documented by: Amiodarone HCl/Dextrose (Nexterone In Dextrose 360 Mg/200 Ml) 360 mg in 200 mls @ 16.7 mls/hr IV ASDIRECTED [facility]; Protocol Last Admin: 11/09/20 03:28 Dose: 16.7 mls/hr Documented by: Miscellaneous Information (Remove Patch) 0 ea TRDERM Q24H [facility] Nicotine (Habitrol) 14 mg TRDERM Q24H [facility] Last Admin: 11/08/20 15:23 Dose: 14 mg Documented by: Ondansetron HCl (Zofran) 4 mg IV Q6H PRN PRN Reason: Nausea/Vomiting Simvastatin (Zocor) 20 mg PO DAILY [facility] Last Admin: 11/09/20 08:28 Dose: 20 mg Documented by: Sodium Chloride (Saline Flush) 10 ml FLUSH ASDIRECTED PRN PRN Reason: Keep Vein Open Discontinued Medications Dexamethasone (Dexamethasone) 8 mg PO DAILY [facility] Diltiazem HCl (Cardizem) 17 mg IVPUSH ONETIME ONE Stop: 11/08/20 17:08 Last Admin: 11/08/20 17:40 Dose: 17 mg Documented by: Magnesium Sulfate (Magnesium Sulfate In Water Premix) 2 gm in 50 mls @ 25 mls/hr IV ONETIME ONE Stop: 11/08/20 15:59 Last Admin: 11/08/20 15:13 Dose: 25 mls/hr Documented by: Diltiazem HCl 100 mg/ Sodium (Chloride) 100 mls @ 5 mls/hr IV TITRATE [facility]; Protocol Last Titration: 11/08/20 21:20 Dose: 10 mg/hr, 10 mls/hr Documented by: Amiodarone HCl/Dextrose (Nexterone In Dextrose 150 Mg/100 Ml) 100 mls @ 600 mls/hr IV .BOLUS ONE; Protocol Stop: 11/08/20 21:43 Last Admin: 11/08/20 21:43 Dose: 600 mls/hr Documented by: Amiodarone HCl/Dextrose (Nexterone In Dextrose 360 Mg/200 Ml) 360 mg in 200 mls @ 33.333 mls/hr IV ASDIRECTED [facility]; Protocol Last Admin: 11/08/20 21:52 Dose: 33.333 mls/hr Documented by: Miscellaneous Information (Remove Patch) 0 ea TRDERM DAILY [facility] Nicotine (Habitrol) 21 mg TRDERM DAILY [facility] Last Admin: 11/08/20 17:43 Dose: Not Given Documented by: Non-Formulary Medication (Olanzapine) 10 mg PO DAILY [facility] - Exam Quality Assessment: Supplemental Oxygen (2.5), DVT Prophylaxis General: Alert, Oriented, Cooperative, No Acute Distress HEENT: Pupils Equal, Pupils Reactive, Mucous Membr. Moist/[place] Neck: Supple, Trachea Midline Lungs: Normal Respiratory Effort, Decreased Breath Sounds, Other (Port in chest ) Cardiovascular: Irregular Rhythm, Tachycardia GI/Abdominal Exam: Normal Bowel Sounds, Soft, No Distention, Tender (RUQ mild tenderness - worse on palpation ) (Male) Exam: Deferred Back Exam: Normal Inspection, Full Range of Motion Extremities: Normal Inspection, Normal Range of Motion, Non-Tender, No Pedal Edema, Normal Capillary Refill Skin: Warm, Dry, Intact Neurological: No New Focal Deficit Psy/Mental Status: Alert Sepsis Event Note - Evaluation Sepsis Screening Result: Sepsis Risk - Focused Exam Vital Signs: Vital Signs Temp Resp BP BP Pulse Ox Pulse Ox 11/09/20 09:21 20 11/09/20 09:00 97 F 11/09/20 08:45 20 94 L 11/09/20 08:31 22 H 11/09/20 08:30 20 80/62 L 11/09/20 08:29 23 H 11/09/20 08:26 18 81/59 L 99 11/09/20 08:25 23 H 97 11/09/20 08:16 23 H 95 11/09/20 08:15 25 H 73/46 L 96 11/09/20 08:14 25 H 95 11/09/20 08:02 21 H 76/59 L 11/09/20 08:01 22 H 92 L 11/09/20 08:00 27 H 93 L 11/09/20 07:46 22 H 91 L 11/09/20 07:45 20 92/61 11/09/20 07:44 18 90 L 11/09/20 07:31 26 H 92 L 11/09/20 07:30 21 H 102/77 11/09/20 07:29 22 H 11/09/20 07:16 19 110/61 11/09/20 07:15 21 H 93 L 11/09/20 07:01 18 96 11/09/20 07:00 20 100/79 11/09/20 06:59 20 11/09/20 06:53 20 99/64 11/09/20 06:52 27 H 11/09/20 06:45 20 11/09/20 06:30 20 12/31/20 06:16 18 92/61 11/09/20 06:15 18 11/09/20 06:05 94 L 11/09/20 06:01 19 11/09/20 06:00 98.1 F 18 93/68 93/68 94 L 11/09/20 05:59 18 11/09/20 05:53 20 78/56 L 75 L 11/09/20 05:52 14 11/09/20 05:46 16 11/09/20 05:44 20 11/09/20 05:31 24 H 80/52 L 11/09/20 05:30 18 11/09/20 05:16 22 H 85/59 L 92 L 11/09/20 05:15 25 H 93 L 11/09/20 05:01 22 H 94/56 L 92 L 11/09/20 05:00 22 H 94/56 L 93 L 11/09/20 04:46 22 H 88/59 L 90 L 11/09/20 04:45 21 H 90 L 11/09/20 04:31 22 H 88/61 L 11/09/20 04:30 24 H 11/09/20 04:16 21 H 101/67 88 L 11/09/20 04:15 19 90 L 11/09/20 04:04 20 90/63 94 L 11/09/20 04:00 19 90/63 95 11/09/20 03:00 22 H 90/52 L 98 11/09/20 02:00 24 H 90/59 L 90 L 11/09/20 01:00 23 H 92/67 91 L 11/09/20 00:00 98.0 F 24 H 98/58 L 90 L 11/08/20 23:01 24 H 11/08/20 23:00 28 H 85/51 L 97 11/08/20 22:59 28 H 96 11/08/20 22:46 26 H 93 L 11/08/20 22:45 27 H 90/53 L 96 11/08/20 22:44 29 H 94 L 11/08/20 22:31 32 H 97 11/08/20 22:30 27 H 98/77 92 L 11/08/20 22:29 24 H 95 11/08/20 22:27 23 H 77/52 L 94 L 11/08/20 22:26 20 11/08/20 22:18 24 H 74/45 L 11/08/20 22:17 22 H 11/08/20 22:16 22 H 65/51 L 11/08/20 22:15 32 H 68/48 L 11/08/20 22:14 28 H 11/08/20 22:01 28 H 11/08/20 22:00 23 H 85/49 L 11/08/20 21:59 30 H 61 L 11/08/20 21:46 26 H 11/08/20 21:45 27 H 83/46 L 11/08/20 21:44 23 H - Problem List & Annotations (1) Bacteremia SNOMED Code(s): 2965247 Code(s): R78.81 - BACTEREMIA Status: Acute Priority: High Current Visit: Yes (2) COPD (chronic obstructive pulmonary disease) SNOMED Code(s): 98129373 Code(s): J44.9 - CHRONIC OBSTRUCTIVE PULMONARY DISEASE, UNSPECIFIED Status: Chronic Priority: Low Current Visit: No Qualifiers: COPD type: unspecified COPD Qualified Code(s): J44.9 - Chronic obstructive pulmonary disease, unspecified (3) CAD (coronary artery disease) SNOMED Code(s): 75444859 Code(s): I25.10 - ATHSCL HEART DISEASE OF [place] CORONARY ARTERY W/O ANG PCTRS Status: Chronic Priority: Low Current Visit: No Qualifiers: Coronary Disease-Associated Artery/Lesion type: unspecified vessel or lesion type [place] vs. transplanted heart: [place] heart Associated angina: angina presence unspecified Qualified Code(s): I25.10 - Atherosclerotic heart disease of [place] coronary artery without angina pectoris (4) HLD (hyperlipidemia) SNOMED Code(s): 05579413 Code(s): E78.5 - HYPERLIPIDEMIA, UNSPECIFIED Status: Chronic Priority: Low Current Visit: No Qualifiers: Hyperlipidemia type: unspecified Qualified Code(s): E78.5 - Hyperlipidemia, unspecified (5) HTN (hypertension) SNOMED Code(s): 37608429 Code(s): I10 - ESSENTIAL (PRIMARY) HYPERTENSION Status: Chronic Priority: Medium Current Visit: No Qualifiers: Hypertension type: unspecified Qualified Code(s): I10 - Essential (primary) hypertension (6) Malignant neoplasm of lower lobe of right lung SNOMED Code(s): 063825970 Code(s): C34.31 - MALIGNANT NEOPLASM OF LOWER LOBE, RIGHT BRONCHUS OR LUNG Status: Chronic Priority: Medium Current Visit: Yes (7) Port-A-Cath in place SNOMED Code(s): 020234360 Code(s): Z95.828 - PRESENCE OF OTHER VASCULAR IMPLANTS AND GRAFTS Status: Chronic Priority: Medium Current Visit: Yes (8) Swelling of right half of scrotum SNOMED Code(s): 392172796 Code(s): N50.89 - OTHER SPECIFIED DISORDERS OF THE MALE GENITAL ORGANS Status: Chronic Priority: Medium Current Visit: Yes (9) Throat pain in adult SNOMED Code(s): 983758994 Code(s): R07.0 - PAIN IN THROAT Status: Acute Priority: High Current Visit: Yes (10) Current smoker SNOMED Code(s): 68688433 Code(s): F17.200 - NICOTINE DEPENDENCE, UNSPECIFIED, UNCOMPLICATED Status: Acute Priority: High Current Visit: Yes (11) Atrial fibrillation with RVR SNOMED Code(s): 682076189313270 Code(s): I48.91 - UNSPECIFIED ATRIAL FIBRILLATION Status: Acute Priority: High Current Visit: Yes (12) Hydrocele SNOMED Code(s): 12144511, 990359296 Code(s): N43.3 - HYDROCELE, UNSPECIFIED Status: Chronic Priority: Medium Current Visit: Yes Qualifiers: Hydrocele type: unspecified Qualified Code(s): N43.3 - Hydrocele, unspecified (13) Asymptomatic cholelithiasis SNOMED Code(s): 048722696, 337838612 Code(s): K80.20 - CALCULUS OF GALLBLADDER W/O CHOLECYSTITIS W/O OBSTRUCTION Status: Acute Priority: Medium Current Visit: Yes - Problem List Review Problem List Initiated/Reviewed/Updated: Yes - My Orders Last 24 Hours: My Active Orders 11/08/20 11:17 Height and Weight [RC] 06 Oxygen Therapy [RC] .PRN Up ad Dina [RC] .PRN VTE/DVT Education [RC] 1800 Vital Signs [RC] Q1HR Acetaminophen [TylenoL] 650 mg PO Q4H PRN Ondansetron [Zofran] 4 mg IV Q6H PRN Sodium Chloride 0.9% [Saline Flush] 10 ml FLUSH ASDIRECTED PRN Peripheral IV Insertion Adult [OM.PC] Routine 11/08/20 11:18 Intake and Output [RC] 04,16 11/08/20 12:00 cefTRIAXone [Rocephin] 2 gm Sodium Chloride 0.9% [Normal Saline] 100 ml IV Q24H 11/08/20 12:20 PROCALCITONIN [REF] Routine 11/08/20 12:52 Code Status [Resuscitation Status] Routine 11/08/20 12:53 Consult to Occupational Therapy [OT Evaluation and Treatment] [CONS] Routine PT Evaluation and Treatment [CONS] Routine 11/08/20 13:35 Consult to Pilot Manager [CONS] Routine 11/08/20 14:00 Nicotine [Habitrol] 14 mg TRDERM Q24H 11/08/20 14:45 RT Aerosol Therapy [RC] .PRN Albuterol/Ipratropium [DuoNeb 3.0-0.5 MG/3 ML] 3 ml NEB Q6HRRT PRN 11/08/20 15:08 Consult to Case Management/Apartment Groundskeeper [CONS] Routine 11/08/20 15:20 CULTURE THROAT [RM] Routine 11/08/20 Dinner Regular Diet [DIET] 11/09/20 09:00 Aspirin 81 mg PO DAILY Enoxaparin [Lovenox] 40 mg SUBCUT DAILY Simvastatin [Zocor] 20 mg PO DAILY Tiotropium BR/Olodaterol HCL [Stiolto Respimat] 0 gm INH DAILY 11/09/20 14:00 Remove Patch 0 ea TRDERM Q24H - Assessment Assessment:: Assessment - Day of admission - 11/08/2020 * 65 yo male sent for direct admit from oncology after 02/11 bottles positive for beta group B strep * History of right lower lobe lung cancer currently undergoing chemotherapy with Dr. Fisher, Oncology from [facility] * Repots ongoing symptoms of fever, malaise, weakness, cough with sputum, and urinary symptoms of increased frequency and incontinence. * Reports throat pain * Given prescription for PO levaquin by oncology and 1L bolus in clinic with infusion due to hypotension * UA obtained at [facility]: Cloudy, 1+ blood, 30mg/dL protein, 1+ Leukocyte esterase, 21-50 WBC, 6-10 RBC, Occasional Squamous epithelial cells, Moderate bacteria * Sent for culture through [facility] * Negative SARS-CoV antigen * Labs on 11/07/20 at [facility] * WBC 4.8 * ANC 4.0 * Hgb 10.8 * Platelets 158 * Toxic granulation noted * Glucose 145 * BUN 29 * Creatinine 1.27 * Calcium 8.3 * Protein 5.5 * Albumin 2.8 * GFR 57 * CXR on 10/30/20 at [place] was negative except for mas in right mid lung * Wears oxygen 1-3L chronically * [facility] provider note expresses concerns over how patient will do at home. Worried he may need more support at home. * Sepsis screen: * Known bacteremia, and tachycardia but no fever, tachypnea, or WBC <4 or >12. * Does not meet criteria * Direct admit to floor for treatment and further workup of bacteremia. 11/09/2020 * Upgraded to ICU status after A-fib with RVR episode on 11/08/2020 * Cardizem IVP given on floor with minimal response. Amiodarone ultimately given per protocol * Patient HR Noted to be 175-195, patient asymptomatic * HR more controlled today * Throat culture positive for beta strep * Echocardiogram obtained 11/08/2020. * 1. Left ventricular ejection fraction, by visual estimation, is 60 to 65%. * 2. Basilar inferior segment and mid inferior segment are abnormal as described below. * 3. Normal pattern of LV diastolic filling * 4. Normal right ventricular systolic function * 5. There is mild aortic valve sclerosis without stenosis * 6. Trace mitral valve regurgitation * 7. Trace tricuspid valve regurgitation * 8. The right ventricular systolic pressure is unable to be obtained * 9. No evidence of endocarditis. Visualized aortic valve not well visualized. If clinical concern for endocarditis persists, consider VEDA. * RUQ ultrasound obtained due to pain and shows multiple gallstones but no GB wall thickening or Biliary duct dilation * Repeat blood cultures ordered for tomorrow * Labs: * WBC 6.79 * Hemoglobin 9.9 * Platelet 209 * Neutrophil 4.66 * Sodium 139 * Potassium 3.6 * BUN 21 * Creatinine 1.3 * GFR 56 * Magnesium 1.9 * CRP 18.5 * Lipase 90 * Continue IV Rocephin * Urine culture pending - Plan Plan:: A-fib with RVR * Amiodarone protocol * Telemetry Bacteremia Throat pain in adult * Access port as below * Continue 2gm daily Rocephin * Monitor blood cultures for susceptibility * Repeat Blood cultures tomorrow * Obtain echocardiogram looking for vegetation (patient also has signs suspicious for CHF) * Monitor need for IV fluids * Monitor need for oxygen - On 1-3L chronically * PT/OT evaluation * CM/SW for discharge planning * Special attention due to patients immunocompromised state due to lung cancer as below COPD (chronic obstructive pulmonary disease) CAD (coronary artery disease) HLD (hyperlipidemia) HTN (hypertension) * Home medications as noted * Monitor Malignant neoplasm of lower lobe of right lung Port-A-Cath in place * Access port * Patient to follow-up with oncology Swelling of right half of scrotum Bilateral hydrocele * Urology follow-up after discharge Current smoker * Cessation counseling * Nicotine patches while in hospital * Nicotine patches at discharge if patient accepts Cholelithiasis * Outpatient surgical follow-up at discharge Code status: Full Code PCP: Tammi Hernandez NP Oncologist: Dr. Fisher DVT Prophylaxis: Lovenox Social: Patient lives alone in [place] but has a sister who [place] in a [place] house. Disposition: Admitted to [facility] inpatient with telemetry for management and further workup of beta group B strep bacteremia. Prognosis: Good <Geovanni Viveros - Last Filed: 11/09/20 17:11> - Patient Data Vitals - Most Recent: Last Vital Signs Temp 36.1 C 11/09/20 11:25 Pulse 174 H 11/08/20 17:21 Resp 26 H 11/09/20 15:30 BP 101/68 11/09/20 15:30 Pulse Ox 92 L 11/09/20 15:30 I&O - Last 24 Hours: Intake & Output 11/09/20 11/09/20 11/09/20 06:59 14:59 22:59 Intake Total 538 120 Output Total 800 Balance -262 120 Lab Results Last 24 Hours: Laboratory Results - last 24 hr 11/08/20 11/09/20 11/09/20 Range/Units 16:45 06:10 06:10 WBC 6.79 (4.23-9.07) K/mm3 RBC 3.57 L (4.63-6.08) M/mm3 Hgb 9.9 L (13.7-17.5) gm/dl Hct 32.5 L (40.1-51.0) % MCV 91.0 (79.0-92.2) fl MCH 27.7 (25.7-32.2) pg MCHC 30.5 L (32.2-35.5) g/dl RDW Std Deviation 47.4 H (35.1-43.9) fL Plt Count 209 (163-337) K/mm3 MPV 9.9 (9.4-12.3) fl Neut % (Auto) 68.7 H (34.0-67.9) % Lymph % (Auto) 19.6 L (21.8-53.1) % [place] % (Auto) 10.6 (5.3-12.2) % Eos % (Auto) 0.4 L (0.8-7.0) Baso % (Auto) 0.1 (0.1-1.2) % Neut # (Auto) 4.66 (1.78-5.38) K/mm3 Lymph # (Auto) 1.33 (1.32-3.57) K/mm3 [place] # (Auto) 0.72 (0.30-0.82) K/mm3 Eos # (Auto) 0.03 L (0.04-0.54) K/mm3 Baso # (Auto) 0.01 (0.01-0.08) K/mm3 Manual Slide Review Normal smear Sodium 139 (136-145) mEq/L Potassium 3.6 (3.5-5.1) mEq/L Chloride 102 (98-107) mEq/L Carbon Dioxide 30 (21-32) mEq/L Anion Gap 10.6 (5-15) BUN 21 H (7-18) mg/dL Creatinine 1.3 (0.7-1.3) mg/dL Est Cr Clr Drug Dosing 48.07 mL/min Estimated GFR (MDRD) 56 (>60) mL/min BUN/Creatinine Ratio 16.2 (14-18) Glucose 115 (80-115) mg/dL Calcium 8.3 L (8.5-10.1) mg/dL Magnesium 1.9 (1.8-2.4) mg/dl C-Reactive Protein 18.5 H* (<1.0) mg/dL Lipase (73-393) U/L Urine RBC 10-20 H (0-5) /hpf Urine WBC 40-50 H (0-5) /hpf Ur Squamous Epith Cells 10-20 H (0-5) /hpf Urine Bacteria Moderate H (FEW) /hpf Urine Mucus Not seen (FEW) /hpf 11/09/20 Range/Units 06:10 WBC (4.23-9.07) K/mm3 RBC (4.63-6.08) M/mm3 Hgb (13.7-17.5) gm/dl Hct (40.1-51.0) % MCV (79.0-92.2) fl MCH (25.7-32.2) pg MCHC (32.2-35.5) g/dl RDW Std Deviation (35.1-43.9) fL Plt Count (163-337) K/mm3 MPV (9.4-12.3) fl Neut % (Auto) (34.0-67.9) % Lymph % (Auto) (21.8-53.1) % [place] % (Auto) (5.3-12.2) % Eos % (Auto) (0.8-7.0) Baso % (Auto) (0.1-1.2) % Neut # (Auto) (1.78-5.38) K/mm3 Lymph # (Auto) (1.32-3.57) K/mm3 [place] # (Auto) (0.30-0.82) K/mm3 Eos # (Auto) (0.04-0.54) K/mm3 Baso # (Auto) (0.01-0.08) K/mm3 Manual Slide Review Sodium (136-145) mEq/L Potassium (3.5-5.1) mEq/L Chloride (98-107) mEq/L Carbon Dioxide (21-32) mEq/L Anion Gap (5-15) BUN (7-18) mg/dL Creatinine (0.7-1.3) mg/dL Est Cr Clr Drug Dosing mL/min Estimated GFR (MDRD) (>60) mL/min BUN/Creatinine Ratio (14-18) Glucose (80-115) mg/dL Calcium (8.5-10.1) mg/dL Magnesium (1.8-2.4) mg/dl C-Reactive Protein (<1.0) mg/dL Lipase 290 (73-393) U/L Urine RBC (0-5) /hpf Urine WBC (0-5) /hpf Ur Squamous Epith Cells (0-5) /hpf Urine Bacteria (FEW) /hpf Urine Mucus (FEW) /hpf Nimesh Results Last 24 Hours: Microbiology 11/08/20 15:20 Throat Culture - Preliminary Throat Beta Streptococcus Med Orders - Current: Current Medications Acetaminophen (Tylenol) 650 mg PO Q4H PRN PRN Reason: Pain (Mild 1-3)/fever Last Admin: 11/08/20 17:17 Dose: 650 mg Documented by: Albuterol/Ipratropium (Duoneb 3.0-0.5 Mg/3 Ml) 3 ml NEB Q6HRRT PRN PRN Reason: wheezing/SOB/cough Aspirin (Aspirin) 81 mg PO DAILY [facility] Last Admin: 11/09/20 08:28 Dose: 81 mg Documented by: Enoxaparin Sodium (Lovenox) 40 mg SUBCUT DAILY [facility] Last Admin: 11/09/20 08:28 Dose: 40 mg Documented by: Ceftriaxone Sodium 2 gm/ (Sodium Chloride) 100 mls @ 200 mls/hr IV Q24H [facility] Last Admin: 11/09/20 11:19 Dose: 200 mls/hr Documented by: Amiodarone HCl/Dextrose (Nexterone In Dextrose 360 Mg/200 Ml) 360 mg in 200 mls @ 16.7 mls/hr IV ASDIRECTED [facility]; Protocol Last Admin: 11/09/20 15:01 Dose: 16.7 mls/hr Documented by: Miscellaneous Information (Remove Patch) 0 ea TRDERM Q24H [facility] Last Admin: 11/09/20 14:25 Dose: 1 ea Documented by: Nicotine (Habitrol) 14 mg TRDERM Q24H [facility] Last Admin: 11/09/20 14:24 Dose: 14 mg Documented by: Ondansetron HCl (Zofran) 4 mg IV Q6H PRN PRN Reason: Nausea/Vomiting Simvastatin (Zocor) 20 mg PO DAILY [facility] Last Admin: 11/09/20 08:28 Dose: 20 mg Documented by: Sodium Chloride (Saline Flush) 10 ml FLUSH ASDIRECTED PRN PRN Reason: Keep Vein Open Discontinued Medications Dexamethasone (Dexamethasone) 8 mg PO DAILY [facility] Diltiazem HCl (Cardizem) 17 mg IVPUSH ONETIME ONE Stop: 11/08/20 17:08 Last Admin: 11/08/20 17:40 Dose: 17 mg Documented by: Magnesium Sulfate (Magnesium Sulfate In Water Premix) 2 gm in 50 mls @ 25 mls/hr IV ONETIME ONE Stop: 11/08/20 15:59 Last Admin: 11/08/20 15:13 Dose: 25 mls/hr Documented by: Diltiazem HCl 100 mg/ Sodium (Chloride) 100 mls @ 5 mls/hr IV TITRATE [facility]; Protocol Last Titration: 11/08/20 21:20 Dose: 10 mg/hr, 10 mls/hr Documented by: Amiodarone HCl/Dextrose (Nexterone In Dextrose 150 Mg/100 Ml) 100 mls @ 600 mls/hr IV .BOLUS ONE; Protocol Stop: 11/08/20 21:43 Last Admin: 11/08/20 21:43 Dose: 600 mls/hr Documented by: Amiodarone HCl/Dextrose (Nexterone In Dextrose 360 Mg/200 Ml) 360 mg in 200 mls @ 33.333 mls/hr IV ASDIRECTED [facility]; Protocol Last Admin: 11/08/20 21:52 Dose: 33.333 mls/hr Documented by: Miscellaneous Information (Remove Patch) 0 ea TRDERM DAILY [facility] Nicotine (Habitrol) 21 mg TRDERM DAILY [facility] Last Admin: 11/08/20 17:43 Dose: Not Given Documented by: Non-Formulary Medication (Olanzapine) 10 mg PO DAILY [facility] Sepsis Event Note - Focused Exam Vital Signs: Vital Signs Temp Resp BP BP Pulse Ox Pulse Ox 11/09/20 15:30 26 H 101/68 92 L 11/09/20 15:29 25 H 93 L 11/09/20 15:15 17 95 11/09/20 15:01 23 H 99/62 95 11/09/20 15:00 14 95 11/09/20 14:45 23 H 96 11/09/20 14:31 18 99/69 95 11/09/20 14:30 22 H 95 11/09/20 14:15 20 95 11/09/20 14:01 19 11/09/20 14:00 20 117/74 98 11/09/20 13:59 17 11/09/20 13:45 19 11/09/20 13:31 19 97 11/09/20 13:30 17 100/69 96 11/09/20 13:29 17 96 11/09/20 13:15 23 H 93 L 11/09/20 13:01 18 93 L 11/09/20 13:00 21 H 84/66 L 94 L 11/09/20 12:59 20 93 L 11/09/20 12:45 20 92 L 11/09/20 12:31 23 H 81 L 11/09/20 12:30 21 H 100/71 11/09/20 12:29 17 11/09/20 12:15 23 H 11/09/20 12:01 24 H 96 11/09/20 12:00 22 H 93/68 95 11/09/20 11:59 24 H 95 11/09/20 11:45 23 H 95 11/09/20 11:31 23 H 97 11/09/20 11:30 24 H 96/59 L 98 11/09/20 11:29 21 H 99 11/09/20 11:25 36.1 C 20 85/64 L 95 11/09/20 11:24 21 H 85/64 L 97 11/09/20 11:23 21 H 98 11/09/20 11:15 20 99 11/09/20 11:01 23 H 99 11/09/20 11:00 20 81/58 L 99 11/09/20 10:59 24 H 98 11/09/20 10:45 20 94 L 11/09/20 10:31 19 98 11/09/20 10:30 20 79/56 L 98 11/09/20 10:29 20 11/09/20 10:15 22 H 11/09/20 10:01 22 H 96 11/09/20 10:00 21 H 86/57 L 11/09/20 09:59 20 11/09/20 09:45 19 11/09/20 09:31 24 H 85 L 11/09/20 09:30 18 100/67 95 11/09/20 09:29 18 95 11/09/20 09:21 20 11/09/20 09:15 18 11/09/20 09:01 19 11/09/20 09:00 36.1 C 21 H 96/73 11/09/20 08:59 22 H 11/09/20 08:45 20 94 L 11/09/20 08:31 22 H 11/09/20 08:30 20 80/62 L 11/09/20 08:29 23 H 11/09/20 08:26 18 81/59 L 99 11/09/20 08:25 23 H 97 11/09/20 08:16 23 H 95 11/09/20 08:15 25 H 73/46 L 96 11/09/20 08:14 25 H 95 11/09/20 08:02 21 H 76/59 L 11/09/20 08:01 22 H 92 L 11/09/20 08:00 27 H 93 L 11/09/20 07:46 22 H 91 L 11/09/20 07:45 20 92/61 11/09/20 07:44 18 90 L 11/09/20 07:31 26 H 92 L 11/09/20 07:30 21 H 102/77 11/09/20 07:29 22 H 11/09/20 07:16 19 110/61 11/09/20 07:15 21 H 93 L 11/09/20 07:01 18 96 11/09/20 07:00 20 100/79 11/09/20 06:59 20 11/09/20 06:53 20 99/64 11/09/20 06:52 27 H 11/09/20 06:45 20 11/09/20 06:30 20 11/09/20 06:16 18 92/61 11/09/20 06:15 18 11/09/20 06:05 94 L 11/09/20 06:01 19 11/09/20 06:00 36.7 C 18 93/68 93/68 94 L 11/09/20 05:59 18 11/09/20 05:53 20 78/56 L 75 L 11/09/20 05:52 14 11/09/20 05:46 16 11/09/20 05:44 20 11/09/20 05:31 24 H 80/52 L 11/09/20 05:30 18 11/09/20 05:16 22 H 85/59 L 92 L 11/09/20 05:15 25 H 93 L - My Orders Last 24 Hours: My Active Orders 11/08/20 17:07 EKG Documentation Completion [RC] ASDIRECTED EKG 12 Lead [EK] Stat 11/08/20 17:55 Admission Status [Patient Status] [ADT] Routine 11/09/20 04:00 Amiodarone In Dextrose,Iso-Osm [Nexterone in Dextrose 360 MG/200 ML] 360 mg in 200 ml IV ASDIRECTED - Plan Plan:: I have seen and evaluated the patient independent of Yo Marks PA-C. I have reviewed and agree with the plan of care as outlined for this patient by him. I have discussed the case with Yo. Please see orders.
--- NOTE | 2020-11-09 11:12 | US ---
Limited abdominal ultrasound: Multiple real-time images of the upper right abdomen were obtained. Comparison: No previous study. Liver shows no focal abnormality. Multiple gallstones are seen within the gallbladder. No gallbladder wall thickening or biliary duct dilatation is appreciated. Right kidney shows no hydronephrosis. Right kidney is not optimally seen. Right kidney measures about 10.4 cm. Pancreas is also not well seen due to bowel gas. Inferior vena cava is patent. Main portal vein shows normal hepatopedal flow. Impression: 1. Multiple gallstones without gallbladder wall thickening or biliary duct dilatation. 2. Right kidney and pancreas not optimally seen. Diagnostic code #3
[2020-11-09] MEDS: cefTRIAXone 2 GM in Sodium Chloride 0.9% 100 ML IV SCH (11:19)
[2020-11-09] MEDS: Nicotine 14 MG/24 Hr Patch TRDERM SCH (14:24)
--- NOTE | 2020-11-10 07:55 | PCM.PN ---
- General Info Date of Service: 11/10/20 Admission Dx/Problem (Free Text): The patient is a 65-year-old gentleman who had been admitted directly from oncology clinic out of concern for gram-positive bacteremia. The patient has been noted to be growing from the throat culture beta Streptococcus. Further, the patient had been upgraded to the intensive care unit due to A. fib with RVR which is apparently chronic in nature. The patient also had been on amiodarone drip. The patient's heart rate has been controlled ranging between 90 and 110. Occasional excursions above 120. The patient is being treated for lung malignancy as well. Today the patient has denied any pain. The patient says that he is tolerating his diet. Other than being tired he has no other complaints today. The patient has a long tobacco history. Functional Status: Reports: Pain Controlled, Tolerating Diet - Review of Systems General: Reports: Weakness HEENT: Reports: No Symptoms Pulmonary: Reports: Shortness of Breath Cardiovascular: Reports: No Symptoms Gastrointestinal: Reports: No Symptoms Genitourinary: Reports: No Symptoms Musculoskeletal: Reports: No Symptoms Skin: Reports: No Symptoms Neurological: Reports: No Symptoms Psychiatric: Reports: No Symptoms - Patient Data Vitals - Most Recent: Last Vital Signs Temp 36.1 C 11/10/20 07:00 Pulse 174 H 11/08/20 17:21 Resp 20 11/10/20 07:00 BP 95/65 11/10/20 07:00 Pulse Ox 94 L 11/10/20 07:00 Weight - Most Recent: 70.09 kg I&O - Last 24 Hours: Intake & Output 11/09/20 11/10/20 11/10/20 22:59 06:59 14:59 Intake Total 570 992 Output Total 475 Balance 570 517 Lab Results Last 24 Hours: Laboratory Results - last 24 hr 11/08/20 11/09/20 11/10/20 Range/Units 12: 06:10 05:10 WBC 6.88 (4.23-9.07) K/mm3 RBC 3.70 L (4.63-6.08) M/mm3 Hgb 10.3 L (13.7-17.5) gm/dl Hct 34.0 L (40.1-51.0) % MCV 91.9 (79.0-92.2) fl MCH 27.8 (25.7-32.2) pg MCHC 30.3 L (32.2-35.5) g/dl RDW Std Deviation 48.4 H (35.1-43.9) fL Plt Count 283 (163-337) K/mm3 MPV 10.2 (9.4-12.3) fl Neut % (Auto) 72.6 H (34.0-67.9) % Lymph % (Auto) 13.8 L (21.8-53.1) % [place] % (Auto) 11.5 (5.3-12.2) % Eos % (Auto) 0.4 L (0.8-7.0) Baso % (Auto) 0.1 (0.1-1.2) % Neut # (Auto) 4.99 (1.78-5.38) K/mm3 Lymph # (Auto) 0.95 L (1.32-3.57) K/mm3 [place] # (Auto) 0.79 (0.30-0.82) K/mm3 Eos # (Auto) 0.03 L (0.04-0.54) K/mm3 Baso # (Auto) 0.01 (0.01-0.08) K/mm3 Manual Slide Review Normal smear Sodium (136-145) mEq/L Potassium (3.5-5.1) mEq/L Chloride (98-107) mEq/L Carbon Dioxide (21-32) mEq/L Anion Gap (5-15) BUN (7-18) mg/dL Creatinine (0.7-1.3) mg/dL Est Cr Clr Drug Dosing mL/min Estimated GFR (MDRD) (>60) mL/min BUN/Creatinine Ratio (14-18) Glucose (80-115) mg/dL Calcium (8.5-10.1) mg/dL Total Bilirubin (0.2-1.0) mg/dL AST (15-37) U/L ALT (16-63) U/L Alkaline Phosphatase (46-116) U/L C-Reactive Protein (<1.0) mg/dL Total Protein (6.4-8.2) g/dl Albumin (3.4-5.0) g/dl Globulin gm/dL Albumin/Globulin Ratio (1-2) Lipase 290 (73-393) U/L Procalcitonin 5.01 H ng/mL 11/10/20 Range/Units 05:10 WBC (4.23-9.07) K/mm3 RBC (4.63-6.08) M/mm3 Hgb (13.7-17.5) gm/dl Hct (40.1-51.0) % MCV (79.0-92.2) fl MCH (25.7-32.2) pg MCHC (32.2-35.5) g/dl RDW Std Deviation (35.1-43.9) fL Plt Count (163-337) K/mm3 MPV (9.4-12.3) fl Neut % (Auto) (34.0-67.9) % Lymph % (Auto) (21.8-53.1) % [place] % (Auto) (5.3-12.2) % Eos % (Auto) (0.8-7.0) Baso % (Auto) (0.1-1.2) % Neut # (Auto) (1.78-5.38) K/mm3 Lymph # (Auto) (1.32-3.57) K/mm3 [place] # (Auto) (0.30-0.82) K/mm3 Eos # (Auto) (0.04-0.54) K/mm3 Baso # (Auto) (0.01-0.08) K/mm3 Manual Slide Review Sodium 139 (136-145) mEq/L Potassium 3.9 (3.5-5.1) mEq/L Chloride 102 (98-107) mEq/L Carbon Dioxide 33 H (21-32) mEq/L Anion Gap 7.9 (5-15) BUN 18 (7-18) mg/dL Creatinine 1.1 (0.7-1.3) mg/dL Est Cr Clr Drug Dosing 56.81 mL/min Estimated GFR (MDRD) > 60 (>60) mL/min BUN/Creatinine Ratio 16.4 (14-18) Glucose 102 (80-115) mg/dL Calcium 8.3 L (8.5-10.1) mg/dL Total Bilirubin 0.3 (0.2-1.0) mg/dL AST 27 (15-37) U/L ALT 33 (16-63) U/L Alkaline Phosphatase 92 (46-116) U/L C-Reactive Protein 15.6 H* (<1.0) mg/dL Total Protein 5.7 L (6.4-8.2) g/dl Albumin 1.7 L (3.4-5.0) g/dl Globulin 4.0 gm/dL Albumin/Globulin Ratio 0.4 L (1-2) Lipase (73-393) U/L Procalcitonin ng/mL Nimesh Results Last 24 Hours: Microbiology 11/08/20 15:20 Throat Culture - Preliminary Throat Beta Streptococcus Med Orders - Current: Current Medications Acetaminophen (Tylenol) 650 mg PO Q4H PRN PRN Reason: Pain (Mild 1-3)/fever Last Admin: 11/08/20 17:17 Dose: 650 mg Documented by: Albuterol/Ipratropium (Duoneb 3.0-0.5 Mg/3 Ml) 3 ml NEB Q6HRRT PRN PRN Reason: wheezing/SOB/cough Aspirin (Aspirin) 81 mg PO DAILY [facility] Last Admin: 11/09/20 08:28 Dose: 81 mg Documented by: Enoxaparin Sodium (Lovenox) 40 mg SUBCUT DAILY [facility] Last Admin: 11/09/20 08:28 Dose: 40 mg Documented by: Ceftriaxone Sodium 2 gm/ (Sodium Chloride) 100 mls @ 200 mls/hr IV Q24H [facility] Last Admin: 11/09/20 11:19 Dose: 200 mls/hr Documented by: Amiodarone HCl/Dextrose (Nexterone In Dextrose 360 Mg/200 Ml) 360 mg in 200 mls @ 16.7 mls/hr IV ASDIRECTED [facility]; Protocol Last Admin: 11/10/20 02:37 Dose: 16.7 mls/hr Documented by: Miscellaneous Information (Remove Patch) 0 ea TRDERM Q24H [facility] Last Admin: 11/09/20 14:25 Dose: 1 ea Documented by: Nicotine (Habitrol) 14 mg TRDERM Q24H [facility] Last Admin: 11/09/20 14:24 Dose: 14 mg Documented by: Ondansetron HCl (Zofran) 4 mg IV Q6H PRN PRN Reason: Nausea/Vomiting Simvastatin (Zocor) 20 mg PO DAILY [facility] Last Admin: 11/09/20 08:28 Dose: 20 mg Documented by: Sodium Chloride (Saline Flush) 10 ml FLUSH ASDIRECTED PRN PRN Reason: Keep Vein Open Discontinued Medications Dexamethasone (Dexamethasone) 8 mg PO DAILY [facility] Diltiazem HCl (Cardizem) 17 mg IVPUSH ONETIME ONE Stop: 11/08/20 17:08 Last Admin: 11/08/20 17:40 Dose: 17 mg Documented by: Magnesium Sulfate (Magnesium Sulfate In Water Premix) 2 gm in 50 mls @ 25 mls/hr IV ONETIME ONE Stop: 11/08/20 15:59 Last Admin: 11/08/20 15:13 Dose: 25 mls/hr Documented by: Diltiazem HCl 100 mg/ Sodium (Chloride) 100 mls @ 5 mls/hr IV TITRATE [facility]; Protocol Last Titration: 11/08/20 21:20 Dose: 10 mg/hr, 10 mls/hr Documented by: Amiodarone HCl/Dextrose (Nexterone In Dextrose 150 Mg/100 Ml) 100 mls @ 600 mls/hr IV .BOLUS ONE; Protocol Stop: 11/08/20 21:43 Last Admin: 11/08/20 21:43 Dose: 600 mls/hr Documented by: Amiodarone HCl/Dextrose (Nexterone In Dextrose 360 Mg/200 Ml) 360 mg in 200 mls @ 33.333 mls/hr IV ASDIRECTED [facility]; Protocol Last Admin: 11/08/20 21:52 Dose: 33.333 mls/hr Documented by: Miscellaneous Information (Remove Patch) 0 ea TRDERM DAILY [facility] Nicotine (Habitrol) 21 mg TRDERM DAILY [facility] Last Admin: 11/08/20 17:43 Dose: Not Given Documented by: Non-Formulary Medication (Olanzapine) 10 mg PO DAILY [facility] - Exam Quality Assessment: Supplemental Oxygen, DVT Prophylaxis General: Alert, Oriented, Cooperative, Other (Appears older than stated age) HEENT: Pupils Equal, Pupils Reactive, EOMI. No: Mucous Membr. Moist/[place] (Dry) Neck: Supple, Trachea Midline Lungs: Clear to Auscultation, Normal Respiratory Effort Cardiovascular: Irregular Rhythm, Tachycardia GI/Abdominal Exam: Normal Bowel Sounds, Soft, No Distention (Male) Exam: Deferred Back Exam: Normal Inspection, Full Range of Motion Extremities: Normal Inspection, No Pedal Edema Skin: Warm, Dry, Intact Neurological: No New Focal Deficit Psy/Mental Status: Alert, Normal Affect Sepsis Event Note - Evaluation Sepsis Screening Result: Sepsis Risk - Focused Exam Vital Signs: Vital Signs Temp Resp BP Pulse Ox 11/10/20 07:00 36.1 C 20 95/65 94 L 11/10/20 06:00 36.2 C 24 H 107/58 L 95 11/10/20 05:00 35.9 C L 22 H 124/67 92 L 11/10/20 04:00 35.9 C L 22 H 101/67 96 11/10/20 03:00 35.9 C L 22 H 94/59 L 97 11/10/20 02:00 36.6 C 24 H 99/68 92 L 11/10/20 01:00 36.4 C 26 H 113/71 96 11/10/20 00:00 36.4 C 23 H 108/62 94 L 11/09/20 23:00 36.4 C 23 H 92/50 L 99 11/09/20 22:00 36.4 C 23 H 94/59 L 95 11/09/20 21:00 36.6 C 27 H 102/54 L 94 L 11/09/20 20:00 36.6 C 22 H 108/68 91 L - Problem List & Annotations (1) Atrial fibrillation with RVR SNOMED Code(s): 119038698160464 Code(s): I48.91 - UNSPECIFIED ATRIAL FIBRILLATION Status: Acute Priority: High Current Visit: Yes (2) Bacteremia SNOMED Code(s): 5066149 Code(s): R78.81 - BACTEREMIA Status: Acute Priority: High Current Visit: Yes (3) Asymptomatic cholelithiasis SNOMED Code(s): 290477445, 874459047 Code(s): K80.20 - CALCULUS OF GALLBLADDER W/O CHOLECYSTITIS W/O OBSTRUCTION Status: Chronic Priority: Medium Current Visit: No (4) Malignant neoplasm of lower lobe of right lung SNOMED Code(s): 787127512 Code(s): C34.31 - MALIGNANT NEOPLASM OF LOWER LOBE, RIGHT BRONCHUS OR LUNG Status: Chronic Priority: Medium Current Visit: Yes (5) COPD (chronic obstructive pulmonary disease) SNOMED Code(s): 14344868 Code(s): J44.9 - CHRONIC OBSTRUCTIVE PULMONARY DISEASE, UNSPECIFIED Status: Chronic Priority: Low Current Visit: No Qualifiers: COPD type: unspecified COPD Qualified Code(s): J44.9 - Chronic obstructive pulmonary disease, unspecified - Problem List Review Problem List Initiated/Reviewed/Updated: Yes - Assessment Assessment:: Assessment - Day of admission - 11/08/2020 * 65 yo male sent for direct admit from oncology after 4/4 bottles positive for beta group B strep * History of right lower lobe lung cancer currently undergoing chemotherapy with Dr. Fisher, Oncology from [facility] * Repots ongoing symptoms of fever, malaise, weakness, cough with sputum, and urinary symptoms of increased frequency and incontinence. * Reports throat pain * Given prescription for PO levaquin by oncology and 1L bolus in clinic with infusion due to hypotension * UA obtained at [place]: Cloudy, 1+ blood, 30mg/dL protein, 1+ Leukocyte esterase, 21-50 WBC, 6-10 RBC, Occasional Squamous epithelial cells, Moderate bacteria * Sent for culture through [place] * Negative SARS-CoV antigen * Labs on 11/07/20 at [place] * WBC 4.8 * ANC 4.0 * Hgb 10.8 * Platelets 158 * Toxic granulation noted * Glucose 145 * BUN 29 * Creatinine 1.27 * Calcium 8.3 * Protein 5.5 * Albumin 2.8 * GFR 57 * CXR on 10/30/20 at [place] was negative except for mas in right mid lung * Wears oxygen 1-3L chronically * [place] provider note expresses concerns over how patient will do at home. Worried he may need more support at home. * Sepsis screen: * Known bacteremia, and tachycardia but no fever, tachypnea, or WBC <4 or >12. * Does not meet criteria * Direct admit to floor for treatment and further workup of bacteremia. 11/09/2020 * Upgraded to ICU status after A-fib with RVR episode on 11/08/2020 * Cardizem IVP given on floor with minimal response. Amiodarone ultimately given per protocol * Patient HR Noted to be 175-195, patient asymptomatic * HR more controlled today * Throat culture positive for beta strep * Echocardiogram obtained 11/08/2020. * 1. Left ventricular ejection fraction, by visual estimation, is 60 to 65%. * 2. Basilar inferior segment and mid inferior segment are abnormal as described below. * 3. Normal pattern of LV diastolic filling * 4. Normal right ventricular systolic function * 5. There is mild aortic valve sclerosis without stenosis * 6. Trace mitral valve regurgitation * 7. Trace tricuspid valve regurgitation * 8. The right ventricular systolic pressure is unable to be obtained * 9. No evidence of endocarditis. Visualized aortic valve not well visualized. If clinical concern for endocarditis persists, consider VEDA. * RUQ ultrasound obtained due to pain and shows multiple gallstones but no GB wall thickening or Biliary duct dilation * Repeat blood cultures ordered for tomorrow * Labs: * WBC 6.79 * Hemoglobin 9.9 * Platelet 209 * Neutrophil 4.66 * Sodium 139 * Potassium 3.6 * BUN 21 * Creatinine 1.3 * GFR 56 * Magnesium 1.9 * CRP 18.5 * Lipase 90 * Continue IV Rocephin * Urine culture pending 11/10/2020 The patient is a 65-year-old gentleman who is currently in the ICU on amiodarone drip for his A. fib with RVR. This will be continued as per protocol until finished. The patient will be transitioned to oral amiodarone likely tomorrow. The patient also will continue to have his nicotine patch to help with his tobacco dependency. The patient also has asymptomatic cholelithiasis which will need to be followed up as an outpatient. Because of the beta streptococcal bacteremia the patient be maintained on IV Rocephin for now. Patient also has his diet as tolerated. We will continue to monitor vital signs. The patient has been encouraged to ambulate although he has been resisting physical therapy at times. The patient should be appropriate for discharge in 1 to 2 days depending on his heart rate control as well as resolution of his bacteremia. Repeat laboratory studies have been ordered. - Plan Plan:: I have seen and evaluated the patient independent of Yo Marks PA-C. I have reviewed and agree with the plan of care as outlined for this patient by him. I have discussed the case with Yo. Please see orders.
[2020-11-10] MEDS: Enoxaparin 40 MG/0.4 ML Syringe SUBCUT SCH (07:59)
[2020-11-10] MEDS: Aspirin 81 MG Tab.Chew PO SCH (07:59)
[2020-11-10] MEDS: Simvastatin 20 MG Tab PO SCH (08:00)
[2020-11-10] MEDS: Tiotropium BR/Olodaterol HCL 4 GM Inhalation Spray 2.5mcg/1 dose; 10 doses INH SCH (08:44)
[2020-11-10] MEDS: cefTRIAXone 2 GM in Sodium Chloride 0.9% 100 ML IV SCH (11:35)
[2020-11-10] MEDS: Nicotine 14 MG/24 Hr Patch TRDERM SCH (15:39)
[2020-11-11] MEDS ORDERED: Magnesium Sulfate/Water 2 GM/50 ML BAG IV ONE (07:08)
--- NOTE | 2020-11-11 07:54 | PCM.PN ---
- General Info Date of Service: 11/11/20 Admission Dx/Problem (Free Text): Beta Streptococcus group B bacteremia and pharyngitis. Stage IV lung cancer. Subjective Update: The patient is a 65-year-old gentleman who had been admitted to acute hospitalization on November 08, 2020 from oncology department with gram-positive cocci bacteremia. Also, the patient had been transferred to intensive care unit with atrial fibrillation with RVR. The patient previously had been on an amiodarone drip. The patient converted to normal sinus rhythm. He feels better today. The patient is concerned about going home. The patient has been tolerating diet. Functional Status: Reports: Pain Controlled, Tolerating Diet - Review of Systems General: Reports: Weakness HEENT: Reports: No Symptoms Pulmonary: Reports: No Symptoms Cardiovascular: Reports: No Symptoms Gastrointestinal: Reports: No Symptoms Genitourinary: Reports: No Symptoms Musculoskeletal: Reports: No Symptoms Skin: Reports: No Symptoms Neurological: Reports: No Symptoms Psychiatric: Reports: No Symptoms - Patient Data Vitals - Most Recent: Last Vital Signs Temp 36.5 C 11/11/20 04:00 Pulse 93 11/11/20 04:00 Resp 22 H 11/11/20 04:00 BP 145/86 H 11/11/20 04:00 Pulse Ox 94 L 11/11/20 07:34 Weight - Most Recent: 70.76 kg I&O - Last 24 Hours: Intake & Output 11/10/20 11/11/20 11/11/20 22:59 06:59 14:59 Intake Total 1280 800 Balance 1280 800 Lab Results Last 24 Hours: Laboratory Results - last 24 hr 11/11/20 11/11/20 11/11/20 Range/Units 04:32 04:32 04:32 WBC 7.24 (4.23-9.07) K/mm3 RBC 3.57 L (4.63-6.08) M/mm3 Hgb 9.8 L (13.7-17.5) gm/dl Hct 33.2 L (40.1-51.0) % MCV 93.0 H (79.0-92.2) fl MCH 27.5 (25.7-32.2) pg MCHC 29.5 L (32.2-35.5) g/dl RDW Std Deviation 48.5 H (35.1-43.9) fL Plt Count 358 H D (163-337) K/mm3 MPV 9.6 (9.4-12.3) fl Neut % (Auto) 75.5 H (34.0-67.9) % Lymph % (Auto) 12.4 L (21.8-53.1) % [place] % (Auto) 9.7 (5.3-12.2) % Eos % (Auto) 0.4 L (0.8-7.0) Baso % (Auto) 0.1 (0.1-1.2) % Neut # (Auto) 5.46 H (1.78-5.38) K/mm3 Lymph # (Auto) 0.90 L (1.32-3.57) K/mm3 [place] # (Auto) 0.70 (0.30-0.82) K/mm3 Eos # (Auto) 0.03 L (0.04-0.54) K/mm3 Baso # (Auto) 0.01 (0.01-0.08) K/mm3 Manual Slide Review Abnormal smear PT 12.1 H (9.7-12.0) SECONDS INR 1.13 Sodium 140 (136-145) mEq/L Potassium 4.2 (3.5-5.1) mEq/L Chloride 102 (98-107) mEq/L Carbon Dioxide 35 H (21-32) mEq/L Anion Gap 7.2 (5-15) BUN 17 (7-18) mg/dL Creatinine 1.0 (0.7-1.3) mg/dL Est Cr Clr Drug Dosing 62.49 mL/min Estimated GFR (MDRD) > 60 (>60) mL/min BUN/Creatinine Ratio 17.0 (14-18) Glucose 99 (80-115) mg/dL Calcium 8.6 (8.5-10.1) mg/dL Magnesium 1.1 L (1.8-2.4) mg/dl Total Bilirubin 0.2 (0.2-1.0) mg/dL AST 19 (15-37) U/L ALT 26 (16-63) U/L Alkaline Phosphatase 85 (46-116) U/L Total Protein 5.5 L (6.4-8.2) g/dl Albumin 1.7 L (3.4-5.0) g/dl Globulin 3.8 gm/dL Albumin/Globulin Ratio 0.5 L (1-2) Nimesh Results Last 24 Hours: Microbiology 11/10/20 05:20 Aerobic Blood Culture - Preliminary Blood - Venous - Lab Draw NO GROWTH AFTER 1 DAY Anaerobic Blood Culture - Preliminary NO GROWTH AFTER 1 DAY 11/10/20 05:10 Aerobic Blood Culture - Preliminary Blood - Venous NO GROWTH AFTER 1 DAY Anaerobic Blood Culture - Preliminary NO GROWTH AFTER 1 DAY 11/08/20 15:20 Throat Culture - Preliminary Throat Beta Streptococcus Group B 11/08/20 16:45 Urine Culture - Preliminary Urine, Clean Catch MIXED JULIET DAY 1 Med Orders - Current: Current Medications Acetaminophen (Tylenol) 650 mg PO Q4H PRN PRN Reason: Pain (Mild 1-3)/fever Last Admin: 11/08/20 17:17 Dose: 650 mg Documented by: Albuterol/Ipratropium (Duoneb 3.0-0.5 Mg/3 Ml) 3 ml NEB Q6HRRT PRN PRN Reason: wheezing/SOB/cough Aspirin (Aspirin) 81 mg PO DAILY [facility] Last Admin: 11/10/20 07:59 Dose: 81 mg Documented by: Enoxaparin Sodium (Lovenox) 40 mg SUBCUT DAILY [facility] Last Admin: 11/10/20 07:59 Dose: 40 mg Documented by: Ceftriaxone Sodium 2 gm/ (Sodium Chloride) 100 mls @ 200 mls/hr IV Q24H [facility] Last Admin: 11/10/20 11:35 Dose: 200 mls/hr Documented by: Magnesium Sulfate (Magnesium Sulfate In Water Premix) 2 gm in 50 mls @ 25 mls/hr IV ONETIME ONE Stop: 11/11/20 09:07 Last Admin: 11/11/20 07:24 Dose: 25 mls/hr Documented by: Metoprolol Succinate (Toprol Xl) 50 mg PO DAILY [facility] Miscellaneous Information (Remove Patch) 0 ea TRDERM Q24H [facility] Last Admin: 11/10/20 15:39 Dose: 1 ea Documented by: Nicotine (Habitrol) 14 mg TRDERM Q24H [facility] Last Admin: 11/10/20 15:39 Dose: 14 mg Documented by: Ondansetron HCl (Zofran) 4 mg IV Q6H PRN PRN Reason: Nausea/Vomiting Simvastatin (Zocor) 20 mg PO DAILY [facility] Last Admin: 11/10/20 08:00 Dose: 20 mg Documented by: Sodium Chloride (Saline Flush) 10 ml FLUSH ASDIRECTED PRN PRN Reason: Keep Vein Open Discontinued Medications Dexamethasone (Dexamethasone) 8 mg PO DAILY [facility] Diltiazem HCl (Cardizem) 17 mg IVPUSH ONETIME ONE Stop: 11/08/20 17:08 Last Admin: 11/08/20 17:40 Dose: 17 mg Documented by: Magnesium Sulfate (Magnesium Sulfate In Water Premix) 2 gm in 50 mls @ 25 mls/hr IV ONETIME ONE Stop: 11/08/20 15:59 Last Admin: 11/08/20 15:13 Dose: 25 mls/hr Documented by: Diltiazem HCl 100 mg/ Sodium (Chloride) 100 mls @ 5 mls/hr IV TITRATE [facility]; Protocol Last Titration: 11/08/20 21:20 Dose: 10 mg/hr, 10 mls/hr Documented by: Amiodarone HCl/Dextrose (Nexterone In Dextrose 150 Mg/100 Ml) 100 mls @ 600 mls/hr IV .BOLUS ONE; Protocol Stop: 11/08/20 21:43 Last Admin: 11/08/20 21:43 Dose: 600 mls/hr Documented by: Amiodarone HCl/Dextrose (Nexterone In Dextrose 360 Mg/200 Ml) 360 mg in 200 mls @ 33.333 mls/hr IV ASDIRECTED [facility]; Protocol Last Admin: 11/08/20 21:52 Dose: 33.333 mls/hr Documented by: Amiodarone HCl/Dextrose (Nexterone In Dextrose 360 Mg/200 Ml) 360 mg in 200 mls @ 16.7 mls/hr IV ASDIRECTED [facility]; Protocol Last Admin: 11/10/20 14:19 Dose: 16.7 mls/hr Documented by: Miscellaneous Information (Remove Patch) 0 ea TRDERM DAILY [facility] Nicotine (Habitrol) 21 mg TRDERM DAILY [facility] Last Admin: 11/08/20 17:43 Dose: Not Given Documented by: Non-Formulary Medication (Olanzapine) 10 mg PO DAILY [facility] - Exam Quality Assessment: Supplemental Oxygen General: Alert, Oriented, Cooperative, No Acute Distress HEENT: Pupils Equal, Pupils Reactive, EOMI Neck: Supple, Trachea Midline Lungs: Clear to Auscultation, Normal Respiratory Effort Cardiovascular: Regular Rate, Regular Rhythm GI/Abdominal Exam: Normal Bowel Sounds, Soft, No Distention (Male) Exam: Deferred Back Exam: Normal Inspection, Full Range of Motion Extremities: Normal Inspection, Normal Range of Motion, No Pedal Edema Skin: Warm, Dry, Intact Neurological: No New Focal Deficit Psy/Mental Status: Alert, Normal Affect, Normal Mood Sepsis Event Note - Evaluation Sepsis Screening Result: No Definite Risk - Focused Exam Vital Signs: Vital Signs Temp Pulse Resp BP Pulse Ox Pulse Ox 11/11/20 07:34 94 L 11/11/20 04:00 36.5 C 93 22 H 145/86 H 94 L 11/11/20 00:00 36.4 C 21 H 93/71 92 L 11/10/20 20:00 36.5 C 25 H 112/57 L 92 L - Problem List & Annotations (1) Atrial fibrillation with RVR SNOMED Code(s): 833886162839702 Code(s): I48.91 - UNSPECIFIED ATRIAL FIBRILLATION Status: Resolved Priority: High Current Visit: Yes (2) Bacteremia SNOMED Code(s): 9217134 Code(s): R78.81 - BACTEREMIA Status: Acute Priority: High Current Visit: Yes (3) Asymptomatic cholelithiasis SNOMED Code(s): 151686556, 300820420 Code(s): K80.20 - CALCULUS OF GALLBLADDER W/O CHOLECYSTITIS W/O OBSTRUCTION Status: Chronic Priority: Medium Current Visit: No (4) Malignant neoplasm of lower lobe of right lung SNOMED Code(s): 360487396 Code(s): C34.31 - MALIGNANT NEOPLASM OF LOWER LOBE, RIGHT BRONCHUS OR LUNG Status: Chronic Priority: Medium Current Visit: Yes (5) COPD (chronic obstructive pulmonary disease) SNOMED Code(s): 85797490 Code(s): J44.9 - CHRONIC OBSTRUCTIVE PULMONARY DISEASE, UNSPECIFIED Status: Chronic Priority: Low Current Visit: No Qualifiers: COPD type: unspecified COPD Qualified Code(s): J44.9 - Chronic obstructive pulmonary disease, unspecified - Problem List Review Problem List Initiated/Reviewed/Updated: Yes - My Orders Last 24 Hours: My Active Orders 11/11/20 07:06 EKG 12 Lead [EK] Stat 11/11/20 07:07 EKG Documentation Completion [RC] ASDIRECTED 11/11/20 07:08 Magnesium Sulfate/Water [Magnesium Sulfate in Water Premix] 2 gm in 50 ml IV ONETIME 11/11/20 09:00 Metoprolol Succinate [Toprol XL] 50 mg PO DAILY - Assessment Assessment:: Assessment - Day of admission - 11/08/2020 * 65 yo male sent for direct admit from oncology after 4/4 bottles positive for beta group B strep * History of right lower lobe lung cancer currently undergoing chemotherapy with Dr. Fisher, Oncology from [facility] * Repots ongoing symptoms of fever, malaise, weakness, cough with sputum, and urinary symptoms of increased frequency and incontinence. * Reports throat pain * Given prescription for PO levaquin by oncology and 1L bolus in clinic with infusion due to hypotension * UA obtained at [facility]: Cloudy, 1+ blood, 30mg/dL protein, 1+ Leukocyte est erase, 21-50 WBC, 6-10 RBC, Occasional Squamous epithelial cells, Moderate bacteria * Sent for culture through [facility] * Negative SARS-CoV antigen * Labs on 11/07/20 at [facility] * WBC 4.8 * ANC 4.0 * Hgb 10.8 * Platelets 158 * Toxic granulation noted * Glucose 145 * BUN 29 * Creatinine 1.27 * Calcium 8.3 * Protein 5.5 * Albumin 2.8 * GFR 57 * CXR on 10/30/20 at [facility] was negative except for mas in right mid lung * Wears oxygen 1-3L chronically * [facility] provider note expresses concerns over how patient will do at home. Worried he may need more support at home. * Sepsis screen: * Known bacteremia, and tachycardia but no fever, tachypnea, or WBC <4 or >12. * Does not meet criteria * Direct admit to floor for treatment and further workup of bacteremia. 11/09/2020 * Upgraded to ICU status after A-fib with RVR episode on 11/08/2020 * Cardizem IVP given on floor with minimal response. Amiodarone ultimately given per protocol * Patient HR Noted to be 175-195, patient asymptomatic * HR more controlled today * Throat culture positive for beta strep * Echocardiogram obtained 11/08/2020. * 1. Left ventricular ejection fraction, by visual estimation, is 60 to 65%. * 2. Basilar inferior segment and mid inferior segment are abnormal as described below. * 3. Normal pattern of LV diastolic filling * 4. Normal right ventricular systolic function * 5. There is mild aortic valve sclerosis without stenosis * 6. Trace mitral valve regurgitation * 7. Trace tricuspid valve regurgitation * 8. The right ventricular systolic pressure is unable to be obtained * 9. No evidence of endocarditis. Visualized aortic valve not well visualized. If clinical concern for endocarditis persists, consider VEDA. * RUQ ultrasound obtained due to pain and shows multiple gallstones but no GB wall thickening or Biliary duct dilation * Repeat blood cultures ordered for tomorrow * Labs: * WBC 6.79 * Hemoglobin 9.9 * Platelet 209 * Neutrophil 4.66 * Sodium 139 * Potassium 3.6 * BUN 21 * Creatinine 1.3 * GFR 56 * Magnesium 1.9 * CRP 18.5 * Lipase 90 * Continue IV Rocephin * Urine culture pending 11/10/2020 The patient is a 65-year-old gentleman who is currently in the ICU on amiodarone drip for his A. fib with RVR. This will be continued as per protocol until finished. The patient will be transitioned to oral amiodarone likely tomorrow. The patient also will continue to have his nicotine patch to help with his tobacco dependency. The patient also has asymptomatic cholelithiasis which will need to be followed up as an outpatient. Because of the beta streptococcal bacteremia the patient be maintained on IV Rocephin for now. Patient also has his diet as tolerated. We will continue to monitor vital signs. The patient has been encouraged to ambulate although he has been resisting physical therapy at times. The patient should be appropriate for discharge in 1 to 2 days depending on his heart rate control as well as resolution of his bacteremia. Repeat laboratory studies have been ordered. 11/11/2020 The patient is a 65-year-old gentleman who is still in the ICU. He converted to normal sinus rhythm and his current EKG does show essentially normal EKG. I do not feel at this time that the patient will require p.o. amiodarone. The patient will have his nicotine patch renewed. The patient does have cho lelithiasis but he will need to follow-up as an outpatient. The patient will also be kept in the IV Rocephin for his beta streptococcal bacteremia. The patient is to have a diet as tolerated. He has been encouraged to ambulate. Continue to monitor vital signs and have the patient remain on telemetry to watch for signs of paroxysmal atrial fibrillation. Continue with anticoagulation. Repeat laboratory studies have been ordered. The patient should be appropriate for discharge in 1 to 2 days. - Plan Plan:: I have seen and evaluated the patient independent of Yo Marks PA-C. I have reviewed and agree with the plan of care as outlined for this patient by him. I have discussed the case with Yo. Please see orders.
[2020-11-11] MEDS: Enoxaparin 40 MG/0.4 ML Syringe SUBCUT SCH (08:43)
[2020-11-11] MEDS: Aspirin 81 MG Tab.Chew PO SCH (08:44)
[2020-11-11] MEDS: Tiotropium BR/Olodaterol HCL 4 GM Inhalation Spray 2.5mcg/1 dose; 10 doses INH SCH (08:44)
[2020-11-11] MEDS: Metoprolol Succinate 50 MG Tab.ER PO SCH (08:44)
[2020-11-11] MEDS: Simvastatin 20 MG Tab PO SCH (08:45)
[2020-11-11] MEDS: cefTRIAXone 2 GM in Sodium Chloride 0.9% 100 ML IV SCH (12:46)
[2020-11-11] MEDS: Nicotine 14 MG/24 Hr Patch TRDERM SCH (15:54)
[2020-11-12] MEDS: Metoprolol Succinate 50 MG Tab.ER PO SCH (08:15)
[2020-11-12] MEDS: Enoxaparin 40 MG/0.4 ML Syringe SUBCUT SCH (08:15)
[2020-11-12] MEDS: Aspirin 81 MG Tab.Chew PO SCH (08:15)
[2020-11-12] MEDS: Magnesium Oxide 400 MG Tab PO SCH (08:17)
[2020-11-12] MEDS: Simvastatin 20 MG Tab PO SCH (08:17)
[2020-11-12] MEDS: Tiotropium BR/Olodaterol HCL 4 GM Inhalation Spray 2.5mcg/1 dose; 10 doses INH SCH (08:56)
--- NOTE | 2020-11-12 12:17 | PCM.PN ---
- General Info Date of Service: 11/12/20 Admission Dx/Problem (Free Text): Beta Streptococcus group B bacteremia and pharyngitis. Stage IV lung cancer. Subjective Update: The patient is a complicated chronically ill 65-year-old gentleman who was admitted directly from oncology office due to gram-positive bacteremia. This was found to be beta Streptococcus group B and he also had pharyngitis associated with this. Patient has stage IV lung cancer. The patient says that he is feeling better today. He reports that he has been breathing better. Patient has denied any pain and he has been tolerating his diet. Functional Status: Reports: Pain Controlled - Review of Systems General: Reports: No Symptoms HEENT: Reports: No Symptoms Pulmonary: Reports: No Symptoms Cardiovascular: Reports: No Symptoms Gastrointestinal: Reports: No Symptoms Genitourinary: Reports: No Symptoms Musculoskeletal: Reports: No Symptoms Skin: Reports: No Symptoms Neurological: Reports: No Symptoms Psychiatric: Reports: No Symptoms - Patient Data Vitals - Most Recent: Last Vital Signs Temp 36.4 C 11/12/20 08:00 Pulse 79 11/12/20 08:15 Resp 20 11/12/20 08:00 BP 145/96 H 11/12/20 08:15 Pulse Ox 100 11/12/20 08:57 Weight - Most Recent: 70.307 kg I&O - Last 24 Hours: Intake & Output 11/11/20 11/12/20 11/12/20 22:59 06:59 14:59 Intake Total 630 1080 Balance 630 1080 Lab Results Last 24 Hours: Laboratory Results - last 24 hr 11/12/20 11/12/20 11/12/20 Range/Units 04:47 04:47 04:47 WBC 8.16 (4.23-9.07) K/mm3 RBC 3.57 L (4.63-6.08) M/mm3 Hgb 9.7 L (13.7-17.5) gm/dl Hct 33.7 L (40.1-51.0) % MCV 94.4 H (79.0-92.2) fl MCH 27.2 (25.7-32.2) pg MCHC 28.8 L (32.2-35.5) g/dl RDW Std Deviation 49.5 H (35.1-43.9) fL Plt Count 430 H (163-337) K/mm3 MPV 9.3 L (9.4-12.3) fl Neut % (Auto) 73.1 H (34.0-67.9) % Lymph % (Auto) 12.5 L (21.8-53.1) % Grand % (Auto) 12.1 (5.3-12.2) % Eos % (Auto) 0.5 L (0.8-7.0) Baso % (Auto) 0.1 (0.1-1.2) % Neut # (Auto) 5.96 H (1.78-5.38) K/mm3 Lymph # (Auto) 1.02 L (1.32-3.57) K/mm3 Grand # (Auto) 0.99 H (0.30-0.82) K/mm3 Eos # (Auto) 0.04 (0.04-0.54) K/mm3 Baso # (Auto) 0.01 (0.01-0.08) K/mm3 Manual Slide Review Abnormal smear Sodium 144 (136-145) mEq/L Potassium 4.2 (3.5-5.1) mEq/L Chloride 105 (98-107) mEq/L Carbon Dioxide 36 H (21-32) mEq/L Anion Gap 7.2 (5-15) BUN 13 (7-18) mg/dL Creatinine 0.8 (0.7-1.3) mg/dL Est Cr Clr Drug Dosing 78.11 mL/min Estimated GFR (MDRD) > 60 (>60) mL/min BUN/Creatinine Ratio 16.3 (14-18) Glucose 102 (80-115) mg/dL Calcium 8.6 (8.5-10.1) mg/dL Magnesium 1.4 L (1.8-2.4) mg/dl Total Bilirubin 0.2 (0.2-1.0) mg/dL AST 28 (15-37) U/L ALT 30 (16-63) U/L Alkaline Phosphatase 78 (46-116) U/L Total Protein 5.8 L (6.4-8.2) g/dl Albumin 1.8 L (3.4-5.0) g/dl Globulin 4.0 gm/dL Albumin/Globulin Ratio 0.5 L (1-2) Nimesh Results Last 24 Hours: Microbiology 11/08/20 15:20 Throat Culture - Final Throat Beta Streptococcus Group B Staphylococcus Aureus 11/10/20 05:20 Aerobic Blood Culture - Preliminary Blood - Venous - Lab Draw NO GROWTH AFTER 2 DAYS Anaerobic Blood Culture - Preliminary NO GROWTH AFTER 2 DAYS 11/10/20 05:10 Aerobic Blood Culture - Preliminary Blood - Venous NO GROWTH AFTER 2 DAYS Anaerobic Blood Culture - Preliminary NO GROWTH AFTER 2 DAYS 11/08/20 16:45 Urine Culture - Final Urine, Clean Catch Beta Streptococcus Group B Med Orders - Current: Current Medications Acetaminophen (Tylenol) 650 mg PO Q4H PRN PRN Reason: Pain (Mild 1-3)/fever Last Admin: 11/08/20 17:17 Dose: 650 mg Documented by: Albuterol/Ipratropium (Duoneb 3.0-0.5 Mg/3 Ml) 3 ml NEB Q6HRRT PRN PRN Reason: wheezing/SOB/cough Aspirin (Aspirin) 81 mg PO DAILY [facility] Last Admin: 11/12/20 08:15 Dose: 81 mg Documented by: Enoxaparin Sodium (Lovenox) 40 mg SUBCUT DAILY [facility] Last Admin: 11/12/20 08:15 Dose: 40 mg Documented by: Ceftriaxone Sodium 2 gm/ (Sodium Chloride) 100 mls @ 200 mls/hr IV Q24H [facility] Last Admin: 11/11/20 12:46 Dose: 200 mls/hr Documented by: Magnesium Oxide (Magnesium Oxide) 400 mg PO BID [facility] Last Admin: 11/12/20 08:17 Dose: 400 mg Documented by: Metoprolol Succinate (Toprol Xl) 50 mg PO DAILY [facility] Last Admin: 11/12/20 08:15 Dose: 50 mg Documented by: Miscellaneous Information (Remove Patch) 0 ea TRDERM Q24H [facility] Last Admin: 11/11/20 15:55 Dose: 1 ea Documented by: Nicotine (Habitrol) 14 mg TRDERM Q24H [facility] Last Admin: 11/11/20 15:54 Dose: 14 mg Documented by: Ondansetron HCl (Zofran) 4 mg IV Q6H PRN PRN Reason: Nausea/Vomiting Simvastatin (Zocor) 20 mg PO DAILY [facility] Last Admin: 11/12/20 08:17 Dose: 20 mg Documented by: Sodium Chloride (Saline Flush) 10 ml FLUSH ASDIRECTED PRN PRN Reason: Keep Vein Open Discontinued Medications Dexamethasone (Dexamethasone) 8 mg PO DAILY [facility] Diltiazem HCl (Cardizem) 17 mg IVPUSH ONETIME ONE Stop: 11/08/20 17:08 Last Admin: 11/08/20 17:40 Dose: 17 mg Documented by: Magnesium Sulfate (Magnesium Sulfate In Water Premix) 2 gm in 50 mls @ 25 mls/hr IV ONETIME ONE Stop: 11/08/20 15:59 Last Admin: 11/08/20 15:13 Dose: 25 mls/hr Documented by: Diltiazem HCl 100 mg/ Sodium (Chloride) 100 mls @ 5 mls/hr IV TITRATE [facility]; Protocol Last Titration: 11/08/20 21:20 Dose: 10 mg/hr, 10 mls/hr Documented by: Amiodarone HCl/Dextrose (Nexterone In Dextrose 150 Mg/100 Ml) 100 mls @ 600 mls/hr IV .BOLUS ONE; Protocol Stop: 11/08/20 21:43 Last Admin: 11/08/20 21:43 Dose: 600 mls/hr Documented by: Amiodarone HCl/Dextrose (Nexterone In Dextrose 360 Mg/200 Ml) 360 mg in 200 mls @ 33.333 mls/hr IV ASDIRECTED [facility]; Protocol Last Admin: 11/08/20 21:52 Dose: 33.333 mls/hr Documented by: Amiodarone HCl/Dextrose (Nexterone In Dextrose 360 Mg/200 Ml) 360 mg in 200 mls @ 16.7 mls/hr IV ASDIRECTED [facility]; Protocol Last Admin: 11/10/20 14:19 Dose: 16.7 mls/hr Documented by: Magnesium Sulfate (Magnesium Sulfate In Water Premix) 2 gm in 50 mls @ 25 mls/hr IV ONETIME ONE Stop: 11/11/20 09:07 Last Admin: 11/11/20 07:24 Dose: 25 mls/hr Documented by: Miscellaneous Information (Remove Patch) 0 ea TRDERM DAILY [facility] Nicotine (Habitrol) 21 mg TRDERM DAILY [facility] Last Admin: 11/08/20 17:43 Dose: Not Given Documented by: Non-Formulary Medication (Olanzapine) 10 mg PO DAILY [facility] - Exam Quality Assessment: Supplemental Oxygen, DVT Prophylaxis General: Alert, Oriented, Cooperative, No Acute Distress HEENT: Pupils Equal, Pupils Reactive, EOMI. No: Mucous Membr. Moist/[place] (Poor dentition) Neck: Supple, Trachea Midline Lungs: Normal Respiratory Effort, Rales (Bibasilar) Cardiovascular: Regular Rate, Regular Rhythm GI/Abdominal Exam: Normal Bowel Sounds, Soft, Non-Tender, No Distention (Male) Exam: Deferred Back Exam: Normal Inspection, Full Range of Motion Extremities: Normal Inspection, No Pedal Edema Skin: Warm, Dry, Intact Neurological: No New Focal Deficit Psy/Mental Status: Alert, Normal Affect, Normal Mood Sepsis Event Note - Evaluation Sepsis Screening Result: No Definite Risk - Focused Exam Vital Signs: Vital Signs Temp Pulse Pulse Resp BP BP Pulse Ox 11/12/20 08:57 11/12/20 08:15 79 145/96 H 11/12/20 08:00 36.4 C 84 20 145/96 H 97 11/12/20 04:00 36.4 C 83 20 132/80 94 L Pulse Ox 11/12/20 08:57 100 11/12/20 08:15 11/12/20 08:00 11/12/20 04:00 - Problem List & Annotations (1) Atrial fibrillation with RVR SNOMED Code(s): 310996255400018 Code(s): I48.91 - UNSPECIFIED ATRIAL FIBRILLATION Status: Resolved Priority: High Current Visit: Yes (2) Bacteremia SNOMED Code(s): 2378720 Code(s): R78.81 - BACTEREMIA Status: Acute Priority: High Current Visit: Yes (3) Asymptomatic cholelithiasis SNOMED Code(s): 330707288, 898068372 Code(s): K80.20 - CALCULUS OF GALLBLADDER W/O CHOLECYSTITIS W/O OBSTRUCTION Status: Chronic Priority: Medium Current Visit: No (4) Malignant neoplasm of lower lobe of right lung SNOMED Code(s): 831230520 Code(s): C34.31 - MALIGNANT NEOPLASM OF LOWER LOBE, RIGHT BRONCHUS OR LUNG Status: Chronic Priority: Medium Current Visit: Yes (5) COPD (chronic obstructive pulmonary disease) SNOMED Code(s): 20494412 Code(s): J44.9 - CHRONIC OBSTRUCTIVE PULMONARY DISEASE, UNSPECIFIED Status: Chronic Priority: Low Current Visit: No Qualifiers: COPD type: unspecified COPD Qualified Code(s): J44.9 - Chronic obstructive pulmonary disease, unspecified - Problem List Review Problem List Initiated/Reviewed/Updated: Yes - My Orders Last 24 Hours: My Active Orders 11/12/20 09:00 Magnesium Oxide 400 mg PO BID - Assessment Assessment:: Assessment - Day of admission - 11/08/2020 * 65 yo male sent for direct admit from oncology after 4/4 bottles positive for beta group B strep * History of right lower lobe lung cancer currently undergoing chemotherapy with Dr. Fisher, Oncology from [facility] * Repots ongoing symptoms of fever, malaise, weakness, cough with sputum, and urinary symptoms of increased frequency and incontinence. * Reports throat pain * Given prescription for PO levaquin by oncology and 1L bolus in clinic with infusion due to hypotension * UA obtained at [facility]: Cloudy, 1+ blood, 30mg/dL protein, 1+ Leukocyte esterase, 21-50 WBC, 6-10 RBC, Occasional Squamous epithelial cells, Moderate bacteria * Sent for culture through [facility] * Negative SARS-CoV antigen * Labs on 11/07/20 at [facility] * WBC 4.8 * ANC 4.0 * Hgb 10.8 * Platelets 158 * Toxic granulation noted * Glucose 145 * BUN 29 * Creatinine 1.27 * Calcium 8.3 * Protein 5.5 * Albumin 2.8 * GFR 57 * CXR on 10/30/20 at [place] was negative except for mas in right mid lung * Wears oxygen 1-3L chronically * [facility] provider note expresses concerns over how patient will do at home. Worried he may need more support at home. * Sepsis screen: * Known bacteremia, and tachycardia but no fever, tachypnea, or WBC <4 or >12. * Does not meet criteria * Direct admit to floor for treatment and further workup of bacteremia. 11/09/2020 * Upgraded to ICU status after A-fib with RVR episode on 11/08/2020 * Cardizem IVP given on floor with minimal response. Amiodarone ultimately given per protocol * Patient HR Noted to be 175-195, patient asymptomatic * HR more controlled today * Throat culture positive for beta strep * Echocardiogram obtained 11/08/2020. * 1. Left ventricular ejection fraction, by visual estimation, is 60 to 65%. * 2. Basilar inferior segment and mid inferior segment are abnormal as described below. * 3. Normal pattern of LV diastolic filling * 4. Normal right ventricular systolic function * 5. There is mild aortic valve sclerosis without stenosis * 6. Trace mitral valve regurgitation * 7. Trace tricuspid valve regurgitation * 8. The right ventricular systolic pressure is unable to be obtained * 9. No evidence of endocarditis. Visualized aortic valve not well visualized. If clinical concern for endocarditis persists, consider VEDA. * RUQ ultrasound obtained due to pain and shows multiple gallstones but no GB wall thickening or Biliary duct dilation * Repeat blood cultures ordered for tomorrow * Labs: * WBC 6.79 * Hemoglobin 9.9 * Platelet 209 * Neutrophil 4.66 * Sodium 139 * Potassium 3.6 * BUN 21 * Creatinine 1.3 * GFR 56 * Magnesium 1.9 * CRP 18.5 * Lipase 90 * Continue IV Rocephin * Urine culture pending 11/10/2020 The patient is a 65-year-old gentleman who is currently in the ICU on amiodarone drip for his A. fib with RVR. This will be continued as per protocol until finished. The patient will be transitioned to oral amiodarone likely tomorrow. The patient also will continue to have his nicotine patch to help with his tobacco dependency. The patient also has asymptomatic cholelithiasis which will need to be followed up as an outpatient. Because of the beta streptococcal bacteremia the patient be maintained on IV Rocephin for now. Patient also has his diet as tolerated. We will continue to monitor vital signs. The patient has been encouraged to ambulate although he has been resisting physical therapy at times. The patient should be appropriate for discharge in 1 to 2 days depending on his heart rate control as well as resolution of his bacteremia. Repeat laboratory studies have been ordered. 11/11/2020 The patient is a 65-year-old gentleman who is still in the ICU. He converted to normal sinus rhythm and his current EKG does show essentially normal EKG. I do not feel at this time that the patient will require p.o. amiodarone. The patient will have his nicotine patch renewed. The patient does have cholelithiasis but he will need to follow-up as an outpatient. The patient will also be kept in the IV Rocephin for his beta streptococcal bacteremia. The patient is to have a diet as tolerated. He has been encouraged to ambulate. Continue to monitor vital signs and have the patient remain on telemetry to watch for signs of paroxysmal atrial fibrillation. Continue with anticoagulation. Repeat laboratory studies have been ordered. The patient should be appropriate for discharge in 1 to 2 days. 11/12/2020 The patient is a 65-year-old gentleman who is still in the ICU and has been in normal sinus rhythm for the past 24 hours. We will downgrade the patient from ICU. The patient will still be kept on telemetry to monitor his heart rhythm. The patient does have blood cultures that are currently 2 days worth of no growth. The patient will be continued on the IV Rocephin for his beta streptococcal bacteremia. The patient does have stage IV lung cancer and he will need to follow-up with his oncologist after discharge. I have ordered repeat laboratory studies. We will continue him on anticoagulation. The patient should be appropriate for discharge possibly tomorrow providing that blood cultures remain negative. - Plan Plan:: I have seen and evaluated the patient independent of Yo Marks PA-C. I have reviewed and agree with the plan of care as outlined for this patient by him. I have discussed the case with Yo. Please see orders.
[2020-11-12] MEDS: cefTRIAXone 2 GM in Sodium Chloride 0.9% 100 ML IV SCH (13:04)
[2020-11-12] MEDS: Nicotine 14 MG/24 Hr Patch TRDERM SCH (14:00)
[2020-11-13] MEDS ORDERED: Magnesium Sulfate/Water 2 GM/50 ML BAG IV ONE (07:52)
[2020-11-13] MEDS: Aspirin 81 MG Tab.Chew PO SCH (08:31)
[2020-11-13] MEDS: Enoxaparin 40 MG/0.4 ML Syringe SUBCUT SCH (08:31)
[2020-11-13] MEDS: Simvastatin 20 MG Tab PO SCH (08:31)
[2020-11-13] MEDS: Magnesium Oxide 400 MG Tab PO SCH (08:31)
[2020-11-13] MEDS: Tiotropium BR/Olodaterol HCL 4 GM Inhalation Spray 2.5mcg/1 dose; 10 doses INH SCH (08:36)
[2020-11-13] MEDS: Metoprolol Succinate 50 MG Tab.ER PO SCH (09:15)
--- NOTE | 2020-11-13 09:34 | PCM.DCSUM1 ---
Discharge Summary - Hospital Course HPI Initial Comments: This is a 65-year-old male who presents as a direct admit after being sent our way from oncology. Patient reportedly was evaluated at [facility] on 11/07/2020 after he reported a fever, sore throat, and runny nose. He also reported an associated cough. Patient reports he has been feeling progressively worse and that is been ongoing for several days. He was given a fluid bolus at [facility] due to blood pressure of 86/48 and labs were obtained. Per the [facility] note WBC was 4.8, ANC was 4.0, hemoglobin 10.8, platelets 158, toxic granulation was noted. Glucose was 145, BUN was 29, creatinine 1.27, calcium 8.3, protein 5.5, albumin 2.8, GFR was 57. Last chest x-ray was performed on the and was negative except for the mass in his right lung. Covid screen was negative. UA was also obtained with 1+ blood, 30 mg/dL of protein, 1+ leukocyte esterase, 21-50 WBCs, 6-10 RBCs, occasional squamous epithelial cell, and moderate bacteria noted. Per the [facility] note this was sent for culture and we will monitor for the results of this. At that time blood cultures were obtained and were sent to our facility. 4 out of 4 bottles returned positive for beta strep group B. After this was observed he was sent to our facility for admission. He carries a history of COPD, CAD, HLD, hypertension, malignant neoplasm of the lower left lobe of the right lung. He is currently undergoing treatment with Dr. Fisher, of [facility]. He does have a Port-A-Cath in place, right chest. He is a current daily smoker with a history of 2 packs a day, but reports he is down to about a pack every 4 days. He is a full code. His PCP is Tammi Hernandez NP. Diagnosis: Stroke: No - Discharge Data Discharge Date: 11/13/20 (Admit date: 11/08/2020) Discharge Disposition: Home, Self-Care 01 Condition: Good - Referral to Home Health Primary Care Physician: Tammi Hernandez NP - Discharge Diagnosis/Problem(s) (1) Bacteremia SNOMED Code(s): 9391497 ICD Code: R78.81 - BACTEREMIA Status: Resolved Priority: High (2) COPD (chronic obstructive pulmonary disease) SNOMED Code(s): 20259644 ICD Code: J44.9 - CHRONIC OBSTRUCTIVE PULMONARY DISEASE, UNSPECIFIED Status: Chronic Priority: Low Qualifiers: COPD type: unspecified COPD Qualified Code(s): J44.9 - Chronic obstructive pulmonary disease, unspecified (3) CAD (coronary artery disease) SNOMED Code(s): 13162808 ICD Code: I25.10 - ATHSCL HEART DISEASE OF [place] CORONARY ARTERY W/O ANG PCTRS Status: Chronic Priority: Low Qualifiers: Coronary Disease-Associated Artery/Lesion type: unspecified vessel or lesion type [place] vs. transplanted heart: [place] heart Associated angina: angina presence unspecified Qualified Code(s): I25.10 - Atherosclerotic heart disease of [place] coronary artery without angina pectoris (4) HLD (hyperlipidemia) SNOMED Code(s): 26872492 ICD Code: E78.5 - HYPERLIPIDEMIA, UNSPECIFIED Status: Chronic Priority: Low Qualifiers: Hyperlipidemia type: unspecified Qualified Code(s): E78.5 - Hyperlipidemia, unspecified (5) HTN (hypertension) SNOMED Code(s): 90506319 ICD Code: I10 - ESSENTIAL (PRIMARY) HYPERTENSION Status: Chronic Priority: Medium Qualifiers: Hypertension type: unspecified Qualified Code(s): I10 - Essential (primary) hypertension (6) Malignant neoplasm of lower lobe of right lung SNOMED Code(s): 010901705 ICD Code: C34.31 - MALIGNANT NEOPLASM OF LOWER LOBE, RIGHT BRONCHUS OR LUNG Status: Chronic Priority: Medium (7) Port-A-Cath in place SNOMED Code(s): 353708799 ICD Code: Z95.828 - PRESENCE OF OTHER VASCULAR IMPLANTS AND GRAFTS Status: Chronic Priority: Medium (8) Swelling of right half of scrotum SNOMED Code(s): 376843249 ICD Code: N50.89 - OTHER SPECIFIED DISORDERS OF THE MALE GENITAL ORGANS Status: Chronic Priority: Medium (9) Throat pain in adult SNOMED Code(s): 132789718 ICD Code: R07.0 - PAIN IN THROAT Status: Acute Priority: High (10) Current smoker SNOMED Code(s): 96918201 ICD Code: F17.200 - NICOTINE DEPENDENCE, UNSPECIFIED, UNCOMPLICATED Status: Acute Priority: High (11) Atrial fibrillation with RVR SNOMED Code(s): 981534497334688 ICD Code: I48.91 - UNSPECIFIED ATRIAL FIBRILLATION Status: Resolved Priority: High (12) Hydrocele SNOMED Code(s): 44039581, 013198145 ICD Code: N43.3 - HYDROCELE, UNSPECIFIED Status: Chronic Priority: Medium Qualifiers: Hydrocele type: unspecified Qualified Code(s): N43.3 - Hydrocele, unspecified (13) Asymptomatic cholelithiasis SNOMED Code(s): 007810859, 482210945 ICD Code: K80.20 - CALCULUS OF GALLBLADDER W/O CHOLECYSTITIS W/O OBSTRUCTION Status: Chronic Priority: Medium - Patient Summary/Data Consults: Consultations 11/08/20 12:53 Consult to Occupational Therapy [OT Evaluation and Treatment] [CONS] Routine PT Evaluation and Treatment [CONS] Routine 11/08/20 13:35 Consult to Director Of Dietary [CONS] Routine 11/08/20 15:08 Consult to Case Management/[place] [CONS] Routine Labs Pending at D/C: None Recommended Follow-up Testing/Procedures: Follow-up with Oncology as scheduled (11/21/2020 at 1400PM [place]) Follow-up with PCP within 7-10 days of discharge. -Recommend re-check CBC, CMP, mag at that visit. Hospital Course: Assessment - Day of admission - 11/08/2020 * 65 yo male sent for direct admit from oncology after 4/4 bottles positive for beta group B strep * History of right lower lobe lung cancer currently undergoing chemotherapy with Dr. Fisher, Oncology from [facility] * Repots ongoing symptoms of fever, malaise, weakness, cough with sputum, and urinary symptoms of increased frequency and incontinence. * Reports throat pain * Given prescription for PO levaquin by oncology and 1L bolus in clinic with infusion due to hypotension * UA obtained at [facility]: Cloudy, 1+ blood, 30mg/dL protein, 1+ Leukocyte esterase, 21-50 WBC, 6-10 RBC, Occasional Squamous epithelial cells, Moderate bacteria * Sent for culture through [facility] * Negative SARS-CoV antigen * Labs on 11/07/20 at [facility] * WBC 4.8 * ANC 4.0 * Hgb 10.8 * Platelets 158 * Toxic granulation noted * Glucose 145 * BUN 29 * Creatinine 1.27 * Calcium 8.3 * Protein 5.5 * Albumin 2.8 * GFR 57 * CXR on 10/30/20 at [facility] was negative except for mas in right mid lung * Wears oxygen 1-3L chronically * [facility] provider note expresses concerns over how patient will do at home. Worried he may need more support at home. * Sepsis screen: * Known bacteremia, and tachycardia but no fever, tachypnea, or WBC <4 or >12. * Does not meet criteria * Direct admit to floor for treatment and further workup of bacteremia. 11/09/2020 * Upgraded to ICU status after A-fib with RVR episode on 11/08/2020 * Cardizem IVP given on floor with minimal response. Amiodarone ultimately given per protocol * Patient HR Noted to be 175-195, patient asymptomatic * HR more controlled today * Throat culture positive for beta strep * Echocardiogram obtained 11/08/2020. * 1. Left ventricular ejection fraction, by visual estimation, is 60 to 65%. * 2. Basilar inferior segment and mid inferior segment are abnormal as described below. * 3. Normal pattern of LV diastolic filling * 4. Normal right ventricular systolic function * 5. There is mild aortic valve sclerosis without stenosis * 6. Trace mitral valve regurgitation * 7. Trace tricuspid valve regurgitation * 8. The right ventricular systolic pressure is unable to be obtained * 9. No evidence of endocarditis. Visualized aortic valve not well visualized. If clinical concern for endocarditis persists, consider VEDA. * RUQ ultrasound obtained due to pain and shows multiple gallstones but no GB wall thickening or Biliary duct dilation * Repeat blood cultures ordered for tomorrow * Labs: * WBC 6.79 * Hemoglobin 9.9 * Platelet 209 * Neutrophil 4.66 * Sodium 139 * Potassium 3.6 * BUN 21 * Creatinine 1.3 * GFR 56 * Magnesium 1.9 * CRP 18.5 * Lipase 90 * Continue IV Rocephin * Urine culture pending 11/10/2020 The patient is a 65-year-old gentleman who is currently in the ICU on amiodarone drip for his A. fib with RVR. This will be continued as per protocol until finished. The patient will be transitioned to oral amiodarone likely tomorrow. The patient also will continue to have his nicotine patch to help with his tobacco dependency. The patient also has asymptomatic cholelithiasis which will need to be followed up as an outpatient. Because of the beta streptococcal bacteremia the patient be maintained on IV Rocephin for now. Patient also has his diet as tolerated. We will continue to monitor vital signs. The patient has been encouraged to ambulate although he has been resisting physical therapy at times. The patient should be appropriate for discharge in 1 to 2 days depending on his heart rate control as well as resolution of his bacteremia. Repeat laboratory studies have been ordered. 11/11/2020 The patient is a 65-year-old gentleman who is still in the ICU. He converted to normal sinus rhythm and his current EKG does show essentially normal EKG. I do not feel at this time that the patient will require p.o. amiodarone. The patient will have his nicotine patch renewed. The patient does have cholelithiasis but he will need to follow-up as an outpatient. The patient will also be kept in the IV Rocephin for his beta streptococcal bacteremia. The patient is to have a diet as tolerated. He has been encouraged to ambulate. Continue to monitor vital signs and have the patient remain on telemetry to watch for signs of paroxysmal atrial fibrillation. Continue with anticoagulation. Repeat laboratory studies have been ordered. The patient should be appropriate for discharge in 1 to 2 days. 11/12/2020 The patient is a 65-year-old gentleman who is still in the ICU and has been in normal sinus rhythm for the past 24 hours. We will downgrade the patient from ICU. The patient will still be kept on telemetry to monitor his heart rhythm. The patient does have blood cultures that are currently 2 days worth of no growth. The patient will be continued on the IV Rocephin for his beta streptococcal bacteremia. The patient does have stage IV lung cancer and he will need to follow-up with his oncologist after discharge. I have ordered repe at laboratory studies. We will continue him on anticoagulation. The patient should be appropriate for discharge possibly tomorrow providing that blood cultures remain negative. 11/13/2020 Patient was a direct admit after positive blood cultures through oncology. He was positive for group B beta strep and 4 out of 4 bottles. He was also noted to be complaining of throat pain and this was cultured as well growing group B beta strep. Patient was noting some urinary symptoms so UA was obtained which appeared to be contaminated. Urine culture was showing group B strep as well. He was given Lasix from oncology and once here given IV Rocephin. Due to concerns over cardiac vegetation and patient's baseline heart function echocardiogram was obtained as noted above. Repeat blood cultures remain negative. While patient was admitted telemetry revealed A. fib with RVR and he was upgraded to ICU. Cardizem was given with minimal effect so patient was started on amiodarone drip per protocol. He was ultimately transitioned to p.o. metoprolol and was noted to have a grossly normal EKG after self conversion. Patient was asymptomatic during this episode and unaware that he was in an abnormal rhythm. He was complaining of right upper quadrant pain which she reported have been ongoing for some time so a right upper quadrant ultrasound was obtained showing cholelithiasis. This is something the patient can follow- up with after discharge. Prior to discharge update was given to patient's oncology nurse practitioner and he was scheduled to see his oncologist next Friday. Patient was prescribed 500 mg 4 times daily Keflex for total of 14 days of antibiotic treatment. Prior to discharge magnesium was noted to be low and he was given 2 g of magnesium supplementation. He was also discharged on 5 days of 400 mg daily magnesium supplementation. He was discharged on 50 mg daily metoprolol succinate. Prior to discharge we discussed patient's smoking status. He has been cutting back on his cigarettes substantially and is quite proud of this. We discussed practical counseling and triggers. He was prescribed nicotine patches at discharge. He was directed to follow-up with his primary care provider for assistance with smoking cessation. He was also given contact information such as [place] quits and the [facility] tobacco cessation coalition number. He was discharged home today. He was instructed to follow-up with his primary care provider within 7 to 10 days of discharge. Was instructed to follow-up with primary care provider return the emergency room should symptoms return or worsen. - Patient Instructions Diet: Usual Diet as Tolerated Activity: As Tolerated Driving: Do Not Drive (today ) Showering/Bathing: May Shower Notify Provider of: Fever, Increased Pain, Nausea and/or Vomiting Other/Special Instructions: Follow-up with primary care provider within 7-10 days of discharge, sooner if needed. Follow-up with oncology, Dr. Escoto at 2PM in [place]. Be sure to arrive 15 minutes early. Take all new medications as prescribed. You were prescribed an antibiotic due to your blood infection. Take this as prescribed until gone even if you feel 100% better. We discussed your smoking status and you were prescribed patches for this. You should discuss this with your primary care provider. Should symptoms return or worsen contact your primary care provider or return to the Emergency Department. - Discharge Plan *PRESCRIPTION DRUG MONITORING PROGRAM REVIEWED*: No *COPY OF PRESCRIPTION DRUG MONITORING REPORT IN PATIENT FRANCIA: No Prescriptions/Med Rec: Nicotine [Habitrol] 14 mg TRDERM Q24H #14 patch cephALEXin [Keflex] 500 mg PO Q6HR #35 cap Magnesium Oxide 400 mg PO DAILY #5 tablet Metoprolol Succinate [Toprol XL 50mg] 50 mg PO DAILY #20 tab.er Home Medications: Home Meds Albuterol Sulfate [Albuterol Sulfate Hfa] 1 - 2 puff INH Q4HR PRN 11/08/20 [History] Albuterol/Ipratropium [DuoNeb 3.0-0.5 MG/3 ML] 1 inh NEB Q4HR PRN 11/08/20 [History] Aspirin 81 mg PO DAILY 11/08/20 [History] Non-Formulary Medication [NF Drug] 1 inh INH DAILY 11/08/20 [History] OLANZapine [Olanzapine] 10 mg PO DAILY 11/08/20 [History] Ondansetron [Zofran Odt] 8 mg PO TID PRN 11/08/20 [History] Prochlorperazine [Compazine] 10 mg PO QID PRN 11/08/20 [History] atorvaSTATin [Lipitor] 20 mg PO DAILY 11/08/20 [History] dexAMETHasone [Dexamethasone] 8 mg PO DAILY 11/08/20 [History] lisinopriL [Lisinopril] 10 mg PO DAILY 11/08/20 [History] Magnesium Oxide 400 mg PO DAILY #5 tablet 11/13/20 [Rx] Metoprolol Succinate [Toprol XL 50mg] 50 mg PO DAILY #20 tab.er 11/13/20 [Rx] Nicotine [Habitrol] 14 mg TRDERM Q24H #14 patch 11/13/20 [Rx] cephALEXin [Keflex] 500 mg PO Q6HR #35 cap 11/13/20 [Rx] Oxygen Therapy Mode: Room Air Patient Handouts: Bacteremia, Adult, Steps to Quit Smoking, Atrial Fibrillation, [id number] Referrals: Tammi Hernandez NP [Primary Care Provider] - Cecilia [facility] NP [Ordering Only Provider] - 11/21/20 2:00 pm (3PM [place] time in [place]. Arrive 15 minutes early please. ) - Discharge Summary/Plan Comment DC Time >30 min.: Yes (45 mins ) - General Info Date of Service: 11/13/20 Admission Dx/Problem (Free Text: Beta Streptococcus group B bacteremia and pharyngitis. Stage IV lung cancer. Functional Status: Reports: Pain Controlled, Tolerating Diet, Ambulating, Urinating. Denies: New Symptoms - Review of Systems General: Reports: No Symptoms. Denies: Fever, Weakness, Fatigue, Malaise, Chills HEENT: Reports: No Symptoms. Denies: Headaches, Sore Throat Pulmonary: Reports: No Symptoms. Denies: Shortness of Breath, Pleuritic Chest Pain, Cough, Sputum, Wheezing Cardiovascular: Reports: No Symptoms. Denies: Chest Pain, Palpitations, Dyspnea on Exertion Gastrointestinal: Reports: No Symptoms. Denies: Abdominal Pain, Constipation, Diarrhea, Nausea, Vomiting Genitourinary: Reports: No Symptoms. Denies: Pain Musculoskeletal: Reports: No Symptoms Skin: Reports: No Symptoms. Denies: Cyanosis Neurological: Reports: No Symptoms. Denies: Confusion, Numbness, Tingling, Trouble Speaking, Difficulty Walking, Weakness, Gait Disturbance Psychiatric: Reports: No Symptoms - Patient Data Vitals - Most Recent: Last Vital Signs Temp 97.9 F 11/13/20 04:00 Pulse 78 11/13/20 09:15 Resp 18 11/13/20 04:00 BP 122/64 11/13/20 09:15 Pulse Ox 93 L 11/13/20 08:36 Weight - Most Recent: 156 lb 9.6 oz I&O - Last 24 hours: Intake & Output 11/12/20 11/13/20 11/13/20 22:59 06:59 14:59 Intake Total 1180 800 Balance 1180 800 Lab Results - Last 24 hrs: Laboratory Results - last 24 hr 11/13/20 11/13/20 Range/Units 06:00 06:00 WBC 8.48 (4.23-9.07) K/mm3 RBC 3.55 L (4.63-6.08) M/mm3 Hgb 9.9 L (13.7-17.5) gm/dl Hct 33.8 L (40.1-51.0) % MCV 95.2 H (79.0-92.2) fl MCH 27.9 (25.7-32.2) pg MCHC 29.3 L (32.2-35.5) g/dl RDW Std Deviation 49.2 H (35.1-43.9) fL Plt Count 453 H (163-337) K/mm3 MPV 8.7 L (9.4-12.3) fl Neut % (Auto) 74.5 H (34.0-67.9) % Lymph % (Auto) 12.5 L (21.8-53.1) % [place] % (Auto) 10.7 (5.3-12.2) % Eos % (Auto) 0.2 L (0.8-7.0) Baso % (Auto) 0.2 (0.1-1.2) % Neut # (Auto) 6.31 H (1.78-5.38) K/mm3 Lymph # (Auto) 1.06 L (1.32-3.57) K/mm3 [place] # (Auto) 0.91 H (0.30-0.82) K/mm3 Eos # (Auto) 0.02 L (0.04-0.54) K/mm3 Baso # (Auto) 0.02 (0.01-0.08) K/mm3 Manual Slide Review Abnormal smear Sodium 143 (136-145) mEq/L Potassium 4.4 (3.5-5.1) mEq/L Chloride 104 (98-107) mEq/L Carbon Dioxide 35 H (21-32) mEq/L Anion Gap 8.4 (5-15) BUN 13 (7-18) mg/dL Creatinine 0.8 (0.7-1.3) mg/dL Est Cr Clr Drug Dosing 78.11 mL/min Estimated GFR (MDRD) > 60 (>60) mL/min BUN/Creatinine Ratio 16.3 (14-18) Glucose 96 (80-115) mg/dL Calcium 8.7 (8.5-10.1) mg/dL Magnesium 1.3 L (1.8-2.4) mg/dl Total Bilirubin 0.3 (0.2-1.0) mg/dL AST 41 H (15-37) U/L ALT 44 (16-63) U/L Alkaline Phosphatase 74 (46-116) U/L Total Protein 5.8 L (6.4-8.2) g/dl Albumin 1.8 L (3.4-5.0) g/dl Globulin 4.0 gm/dL Albumin/Globulin Ratio 0.5 L (1-2) ANDRA Results - Last 24 hrs: Microbiology 11/10/20 05:20 Aerobic Blood Culture - Preliminary Blood - Venous - Lab Draw NO GROWTH AFTER 3 DAYS Anaerobic Blood Culture - Preliminary NO GROWTH AFTER 3 DAYS 11/10/20 05:10 Aerobic Blood Culture - Preliminary Blood - Venous NO GROWTH AFTER 3 DAYS Anaerobic Blood Culture - Preliminary NO GROWTH AFTER 3 DAYS 11/08/20 15:20 Throat Culture - Final Throat Beta Streptococcus Group B Staphylococcus Aureus Med Orders - Current: Current Medications Acetaminophen (Tylenol) 650 mg PO Q4H PRN PRN Reason: Pain (Mild 1-3)/fever Last Admin: 11/08/20 17:17 Dose: 650 mg Documented by: Albuterol/Ipratropium (Duoneb 3.0-0.5 Mg/3 Ml) 3 ml NEB Q6HRRT PRN PRN Reason: wheezing/SOB/cough Aspirin (Aspirin) 81 mg PO DAILY [facility] Last Admin: 11/13/20 08:31 Dose: 81 mg Documented by: Cephalexin (Keflex) 500 mg PO Q6H [facility] Enoxaparin Sodium (Lovenox) 40 mg SUBCUT DAILY [facility] Last Admin: 11/13/20 08:31 Dose: 40 mg Documented by: Magnesium Sulfate (Magnesium Sulfate In Water Premix) 2 gm in 50 mls @ 25 mls/hr IV ONETIME ONE Stop: 11/13/20 09:51 Last Admin: 11/13/20 08:30 Dose: 25 mls/hr Documented by: Magnesium Oxide (Magnesium Oxide) 400 mg PO BID [facility] Last Admin: 11/13/20 08:31 Dose: 400 mg Documented by: Metoprolol Succinate (Toprol Xl) 50 mg PO DAILY [facility] Last Admin: 11/13/20 09:15 Dose: 50 mg Documented by: Miscellaneous Information (Remove Patch) 0 ea TRDERM Q24H [facility] Last Admin: 11/12/20 14:00 Dose: 1 ea Documented by: Nicotine (Habitrol) 14 mg TRDERM Q24H [facility] Last Admin: 11/12/20 14:00 Dose: 14 mg Documented by: Ondansetron HCl (Zofran) 4 mg IV Q6H PRN PRN Reason: Nausea/Vomiting Simvastatin (Zocor) 20 mg PO DAILY [facility] Last Admin: 11/13/20 08:31 Dose: 20 mg Documented by: Sodium Chloride (Saline Flush) 10 ml FLUSH ASDIRECTED PRN PRN Reason: Keep Vein Open Discontinued Medications Dexamethasone (Dexamethasone) 8 mg PO DAILY [facility] Diltiazem HCl (Cardizem) 17 mg IVPUSH ONETIME ONE Stop: 11/08/20 17:08 Last Admin: 11/08/20 17:40 Dose: 17 mg Documented by: Ceftriaxone Sodium 2 gm/ (Sodium Chloride) 100 mls @ 200 mls/hr IV Q24H [facility] Last Admin: 11/12/20 13:04 Dose: 200 mls/hr Documented by: Magnesium Sulfate (Magnesium Sulfate In Water Premix) 2 gm in 50 mls @ 25 mls/hr IV ONETIME ONE Stop: 11/08/20 15:59 Last Admin: 11/08/20 15:13 Dose: 25 mls/hr Documented by: Diltiazem HCl 100 mg/ Sodium (Chloride) 100 mls @ 5 mls/hr IV TITRATE [facility]; Protocol Last Titration: 11/08/20 21:20 Dose: 10 mg/hr, 10 mls/hr Documented by: Amiodarone HCl/Dextrose (Nexterone In Dextrose 150 Mg/100 Ml) 100 mls @ 600 ml s/hr IV .BOLUS ONE; Protocol Stop: 11/08/20 21:43 Last Admin: 11/08/20 21:43 Dose: 600 mls/hr Documented by: Amiodarone HCl/Dextrose (Nexterone In Dextrose 360 Mg/200 Ml) 360 mg in 200 mls @ 33.333 mls/hr IV ASDIRECTED [facility]; Protocol Last Admin: 11/08/20 21:52 Dose: 33.333 mls/hr Documented by: Amiodarone HCl/Dextrose (Nexterone In Dextrose 360 Mg/200 Ml) 360 mg in 200 mls @ 16.7 mls/hr IV ASDIRECTED [facility]; Protocol Last Admin: 11/10/20 14:19 Dose: 16.7 mls/hr Documented by: Magnesium Sulfate (Magnesium Sulfate In Water Premix) 2 gm in 50 mls @ 25 mls/hr IV ONETIME ONE Stop: 11/11/20 09:07 Last Admin: 11/11/20 07:24 Dose: 25 mls/hr Documented by: Miscellaneous Information (Remove Patch) 0 ea TRDERM DAILY [facility] Nicotine (Habitrol) 21 mg TRDERM DAILY [facility] Last Admin: 11/08/20 17:43 Dose: Not Given Documented by: Non-Formulary Medication (Olanzapine) 10 mg PO DAILY [facility] - Exam Quality Assessment: Reports: Supplemental Oxygen (2L), DVT Prophylaxis General: Reports: Alert, Oriented, Cooperative, No Acute Distress HEENT: Reports: Pupils Equal, Pupils Reactive, Mucous Membr. Moist/[place]ck: Reports: Supple, Trachea Midline Lungs: Reports: Normal Respiratory Effort, Rales (bibasilar - minimal ) Cardiovascular: Reports: Regular Rate, Regular Rhythm GI/Abdominal Exam: Normal Bowel Sounds, Soft, Non-Tender, No Distention (Male) Exam: Deferred Rectal (Males) Exam: Deferred Back Exam: Reports: Normal Inspection, Full Range of Motion Extremities: Normal Inspection, Normal Range of Motion, Non-Tender, No Pedal Edema, Normal Capillary Refill Skin: Reports: Warm, Dry, Intact Neurological: Reports: No New Focal Deficit Psy/Mental Status: Reports: Alert, Normal Affect, Normal Mood
[2020-11-13] MEDS ORDERED: Cephalexin 500 MG Cap PO SCH (11:00)
== END 2020-11-13 10:59 | disposition home or self-care (01) | DRG 872 ==
LOC: JD.MS 11:06 → JD.ICU 20:16
PROVIDERS: ADMIT Internal Medicine; ATTEND Internal Medicine
DX: R78.81 Bacteremia (principal); C34.31 Malignant neoplasm of lower lobe, right bronchus or lung; I48.0 Paroxysmal atrial fibrillation; J02.9 Acute pharyngitis, unspecified; B95.1 Streptococcus, group B, as the cause of diseases classified elsewhere; F17.210 Nicotine dependence, cigarettes, uncomplicated; K80.20 Calculus of gallbladder without cholecystitis without obstruction; J44.9 Chronic obstructive pulmonary disease, unspecified; I25.10 Atherosclerotic heart disease of native coronary artery without angina pectoris; E78.5 Hyperlipidemia, unspecified; I10 Essential (primary) hypertension; N50.89 Other specified disorders of the male genital organs; N43.3 Hydrocele, unspecified; Z79.01 Long term (current) use of anticoagulants; Z79.82 Long term (current) use of aspirin; Z79.899 Other long term (current) drug therapy; Z95.828 Presence of other vascular implants and grafts
CPT/HCPCS: 36415; 71046; 71046-26; 76705; 76705-26; 80048; 80053; 81001; 83605; 83690; 83735; 83880; 84145; 85025; 85610; 86140; 87040; 87070; 87077; 87086; 87186; 93005; 93306; 94640; 96523; 97162-GP; 97165-GO; A9270-GY; J0282; J0696; J1650; J3475; J3490; J7050

== ENCOUNTER 2021-01-30 17:15 | Emergency (ER) | payer MEDICAID ==
--- NOTE | 2021-01-30 19:21 | US ---
Left lower extremity deep venous ultrasound: Duplex and color Doppler evaluation was obtained of the left common femoral, proximal greater saphenous, superficial femoral, popliteal, posterior tibial and peroneal veins. Right common femoral vein is also evaluated. Findings: Normal phasic flow, augmentation and compression is seen. Impression: 1. No findings of left lower extremity deep venous thrombosis. Diagnostic code #1
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
== END 2021-01-30 20:15 | disposition home or self-care (01) ==
LOC: JD.ED 17:15
DX: M79.605 Pain in left leg (principal); I10 Essential (primary) hypertension; E78.00 Pure hypercholesterolemia, unspecified; E11.9 Type 2 diabetes mellitus without complications; J44.9 Chronic obstructive pulmonary disease, unspecified; Z72.0 Tobacco use; Z88.1 Allergy status to other antibiotic agents; Z79.82 Long term (current) use of aspirin; Z79.899 Other long term (current) drug therapy
CPT/HCPCS: 93971-26-LT; 93971-LT; 99283; 99283-25

== ENCOUNTER 2021-07-19 17:22 | Emergency (ER) | payer MEDICAID ==
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
[2021-07-19] MEDS ORDERED: Adenosine 6 MG/2 ML SDV ONE (18:06)
[2021-07-19] MEDS ORDERED: Adenosine 12 MG/4 ML SDV ONE (18:06)
[2021-07-19] MEDS ORDERED: Adenosine 6 MG/2 ML SDV IVPUSH ONE (18:12)
[2021-07-19] MEDS ORDERED: Adenosine 12 MG/4 ML SDV IVPUSH ONE (18:25)
--- NOTE | 2021-07-19 18:25 | CR ---
Chest: Portable view of the chest was obtained. Comparison: Prior chest x-ray of 11/08/20. Heart is enlarged. Tortuous thoracic aorta is seen. Diffuse increased lung markings are noted which appear fairly stable from prior exam. There is an area of scarring within the right midlung. Stable nodule is noted within the left upper lung. Right-sided infusion port is seen. Bony structures show nothing acute. Impression: 1. Cardiomegaly. 2. Chronic increased lung markings and other chronic findings as noted above. 3. Nothing acute is definitely seen. Diagnostic code #3
[2021-07-19] MEDS ORDERED: Diltiazem 50 MG/10 ML SDV IVPUSH STA (18:29)
[2021-07-19] MEDS ORDERED: Diltiazem 100 MG in Sodium Chloride 0.9% 100 ML IV SCH (19:00)
== END 2021-07-19 19:26 | disposition left against medical advice (07) ==
LOC: JD.ED 17:22
DX: I48.92 Unspecified atrial flutter (principal); I48.91 Unspecified atrial fibrillation; E78.00 Pure hypercholesterolemia, unspecified; I10 Essential (primary) hypertension; J44.9 Chronic obstructive pulmonary disease, unspecified; M19.90 Unspecified osteoarthritis, unspecified site; E11.9 Type 2 diabetes mellitus without complications; Z72.0 Tobacco use; Z88.0 Allergy status to penicillin; Z79.82 Long term (current) use of aspirin; Z79.899 Other long term (current) drug therapy
CPT/HCPCS: 36415; 71045; 80053; 83735; 83880; 84484; 85025; 85379; 93005; 96365; 96375; 99284; J0153; J1642; J3490; 93010; 99283

== ENCOUNTER 2021-09-03 08:26 | Emergency (ER) | payer MEDICAID ==
[2021-09-03] MEDS ORDERED: propofoL 100 ML ONE ×2 (08:41→11:14)
[2021-09-03] MEDS ORDERED: Propofol 200 MG/20 ML SDV IVPUSH ONE (08:45)
[2021-09-03] MEDS ORDERED: propofoL 100 ML IV SCH ×2 (08:45→11:35)
[2021-09-03] MEDS ORDERED: Sodium Chloride 0.9% 1,000 ML IV ONE (08:54)
[2021-09-03] MEDS ORDERED: Rocuronium 50 MG/5 ML Vial IVPUSH ONE ×2 (08:56→11:40)
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
[2021-09-03] MEDS ORDERED: cefTRIAXone 2 GM in Sodium Chloride 0.9% 100 ML IV STA (09:21)
[2021-09-03] MEDS ORDERED: Levofloxacin/Dextrose 5%-Water 750 MG in Premix Bag 1 BAG IV STA (09:21)
[2021-09-03] MEDS ORDERED: Norepinephrine 4 MG in Dextrose 5% in Water 246 ML IV SCH ×2 (09:30)
[2021-09-03 09:54] LABS: CORONAVIRUS COVID-19 NAA POSITIVE (NEGATIVE)
--- NOTE | 2021-09-03 09:55 | CR ---
Chest: Frontal view of the chest was obtained. Comparison: Prior chest x-ray of 07/19/21. Increasing density is seen within the right chest. Lesser increased density within the left lung base. Calcified granuloma is noted within the left upper lung. Endotracheal tube is seen lying below the level of the clavicles above the win. Nasogastric tube courses off the inferior edge of the film into the stomach. Right-sided infusion catheter is seen. Bony structures show nothing acute. Heart is slightly enlarged. Tortuous thoracic aorta is seen. Impression: 1. Increasing density within the right chest as well as within the left lung base. Findings most likely represent diffuse pneumonia. Please exclude COVID disease. 2. Satisfactory position of endotracheal tube and nasogastric tube. 3. Right-sided infusion catheter is seen. Diagnostic code #3
[2021-09-03] MEDS ORDERED: Sodium Chloride 0.9% 1,000 ML IV SCH (10:00)
[2021-09-03] MEDS ORDERED: Rocuronium 50 MG/5 ML Vial ONE (11:14)
== END 2021-09-03 11:40 ==
LOC: JD.ED 08:26
DX: U07.1 COVID-19 (principal); J96.90 Respiratory failure, unspecified, unspecified whether with hypoxia or hypercapnia; N17.9 Acute kidney failure, unspecified; R79.89 Other specified abnormal findings of blood chemistry; R79.0 Abnormal level of blood mineral; E78.00 Pure hypercholesterolemia, unspecified; I10 Essential (primary) hypertension; E11.9 Type 2 diabetes mellitus without complications; J44.9 Chronic obstructive pulmonary disease, unspecified; Z88.0 Allergy status to penicillin; Z79.82 Long term (current) use of aspirin; Z79.899 Other long term (current) drug therapy
CPT/HCPCS: 0240U; 31500; 36415; 36600; 43752; 51702; 71045; 80053; 82803; 83605; 83735; 83880; 84484; 85007; 85027; 85379; 85610; 85730; 87040; 93005; 96365; 96366; 96368; 96375; 99285; J0696; J1956; J2704; J3370; J7030; J7050; J7060